=== PATIENT | male | born 1940 | race Caucasian/White ===

== ENCOUNTER 2020-01-12 09:54 | Outpatient (REF) | payer MEDICARE, OTHER, SELFPAY ==
[2020-01-12 11:07] LABS: MANUAL DIFF FLAG NO
[2020-01-12 11:23] LABS: Basophils Absolute Auto 0.1 X10*3/uL (0.0-0.2); Basophils Percent Auto 0.6 % (0-2); Eosinophils Absolute Auto 0.1 X10*3/uL (0.0-0.4); Eosinophils Percent Auto 1.3 % (0-4); Hematocrit 44.6 % (42-52); Hemoglobin 14.7 g/dl (14.0-18.0); Imm Gran Abs Auto 0.02 X10*3/uL (0.00-0.03); Imm Gran Pct Auto 0.3 % (0.0-0.4); Lymphocytes Absolute Auto 1.8 X10*3/uL (1.2-4.9); Lymphocytes Percent Auto 23.1 % (20-40); Mean Corpuscular Hemoglobin 30.2 pg (27.0-33.0); Mean Corpuscular Volume 91.6 fL (80-98); Mean Platelet Volume 10.6 fL (9.4-12.4); Monocytes Absolute Auto 0.5 X10*3/uL (0.1-1.2); Neutrophils Absolute Auto 5.2 X10*3/uL (2.0-8.3); Neutrophils Percent Auto 67.7 % (45-73); Platelet Count 214 X10*3/uL (160-400); Red Blood Count 4.87 X10*6/uL (4.60-5.80); Red Cell Distribution Width 12.5 % (11.0-16.0); White Blood Count 7.7 X10*3/uL (4.8-10.8)
[2020-01-12 11:34] LABS: B Type Natriuretic Peptide 38 pg/mL (<100)
[2020-01-12 11:37] LABS: Alanine Aminotransferase 24 U/L (0-40); Albumin Level 4.1 g/dL (3.5-5.0); Alkaline Phosphatase 63 U/L (39-117); Anion Gap 11 (12-20); Aspartate Amino Transferase 22 U/L (5-37); Bilirubin Total 0.4 mg/dL (0.0-1.0); Blood Urea Nitrogen 19 mg/dL (9-16); Calcium 8.8 mg/dL (8.4-10.2); Carbon Dioxide 29 mmol/L (22-29); Chloride 106 mmol/L (96-108); Cholesterol 132 mg/dL; Estimated Glomerular Filt Rate 41; Glucose Fasting 105 mg/dL (60-99); HDL Cholesterol 31 mg/dL; LDL Cholesterol Calculated 78 mg/dl; Sodium 142 mmol/L (135-145); Total Protein 6.7 g/dL (6.5-8.0); Triglycerides 118 mg/dL
[2020-01-12 11:38] LABS: Estimated Average Glucose 117 mg/dL; Hemoglobin A1c % 5.7 %
[2020-01-12 11:52] LABS: T4 Thyroxine 7.4 ug/dL (4.5-12.0); Thyroid Stimulating Hormone 2.54 mIU/mL (0.32-4.0)
[2020-01-12 11:53] LABS: Anion Gap 13 (12-20); Blood Urea Nitrogen 19 mg/dL (9-16); Calcium 9.2 mg/dL (8.4-10.2); Carbon Dioxide 26 mmol/L (22-29); Chloride 107 mmol/L (96-108); Estimated Glomerular Filt Rate 41; Sodium 142 mmol/L (135-145)
[2020-01-12 12:18] LABS: Folate > 20.0 ng/mL (> or = 4.0); Vitamin B12 617 pg/mL (200-900)
== END 2020-01-12 09:55 | disposition home or self-care (01) ==
LOC: HO.HMGCLDS 09:54
PROVIDERS: PCP Internal Medicine; Visit Provider Internal Medicine Hypertension Specialist
DX: I12.9 Hypertensive chronic kidney disease with stage 1 through stage 4 chronic kidney disease, or unspecified chronic kidney disease (principal); N18.30 Chronic kidney disease, stage 3 unspecified; I25.10 Atherosclerotic heart disease of native coronary artery without angina pectoris; E78.00 Pure hypercholesterolemia, unspecified; F41.9 Anxiety disorder, unspecified; N40.0 Benign prostatic hyperplasia without lower urinary tract symptoms; K21.9 Gastro-esophageal reflux disease without esophagitis; E66.9 Obesity, unspecified; G47.33 Obstructive sleep apnea (adult) (pediatric); G20 Parkinson's disease; R60.0 Localized edema
CPT/HCPCS: 36415; 80051; 80053; 80061; 82310; 82565; 82607; 82746; 83036; 83880; 84436; 84443; 84520; 85025

== ENCOUNTER → 2020-01-26 10:37 | Outpatient (BNVA) | payer MEDICARE, OTHER, SELFPAY | PROVIDERS: PCP Internal Medicine; Visit Provider Internal Medicine | DX: I25.119 Atherosclerotic heart disease of native coronary artery with unspecified angina pectoris (principal); I12.9 Hypertensive chronic kidney disease with stage 1 through stage 4 chronic kidney disease, or unspecified chronic kidney disease; N18.9 Chronic kidney disease, unspecified; E78.5 Hyperlipidemia, unspecified; G47.33 Obstructive sleep apnea (adult) (pediatric); Z79.82 Long term (current) use of aspirin; Z99.89 Dependence on other enabling machines and devices | CPT/HCPCS: 99212 ==

== ENCOUNTER → 2020-08-03 08:18 | Outpatient (BNVA) | payer MEDICARE, OTHER, SELFPAY | PROVIDERS: PCP Internal Medicine; Referring Provider Internal Medicine; Visit Provider Psychiatry & Neurology Neurology | DX: G47.33 Obstructive sleep apnea (adult) (pediatric) (principal); G47.52 REM sleep behavior disorder; Z99.89 Dependence on other enabling machines and devices | CPT/HCPCS: 99202 ==

== ENCOUNTER 2020-08-12 07:48 | Outpatient (REF) | payer MEDICARE, OTHER, SELFPAY ==
[2020-08-12 11:32] LABS: MANUAL DIFF FLAG NO
[2020-08-12 11:44] LABS: Basophils Percent Auto 0.3 % (0-2); Eosinophils Absolute Auto 0.3 X10*3/uL (0.0-0.4); Eosinophils Percent Auto 2.9 % (0-4); Imm Gran Abs Auto 0.02 X10*3/uL (0.00-0.03); Imm Gran Pct Auto 0.2 % (0.0-0.4); Lymphocytes Absolute Auto 2.2 X10*3/uL (1.2-4.9); Lymphocytes Percent Auto 25.4 % (20-40); Mean Corpuscular HGB Conc 32.6 g/dl (31.0-36.0); Mean Corpuscular Hemoglobin 30.2 pg (27.0-33.0); Mean Corpuscular Volume 92.7 fL (80-98); Mean Platelet Volume 10.8 fL (9.4-12.4); Monocytes Absolute Auto 0.7 X10*3/uL (0.1-1.2); Monocytes Percent Auto 8.3 % (2-11); Neutrophils Absolute Auto 5.5 X10*3/uL (2.0-8.3); Neutrophils Percent Auto 62.9 % (45-73); Platelet Count 215 X10*3/uL (160-400); Red Blood Count 4.64 X10*6/uL (4.60-5.80); Red Cell Distribution Width 13.4 % (11.0-16.0); White Blood Count 8.7 X10*3/uL (4.8-10.8)
[2020-08-12 11:56] LABS: Estimated Average Glucose 123 mg/dL; Hemoglobin A1c % 5.9 %
[2020-08-12 12:08] LABS: Alanine Aminotransferase 22 U/L (0-40); Albumin Level 3.9 g/dL (3.5-5.0); Alkaline Phosphatase 69 U/L (39-117); Anion Gap 12 (12-20); Aspartate Amino Transferase 17 U/L (5-37); Bilirubin Total 0.5 mg/dL (0.0-1.0); Blood Urea Nitrogen 24 mg/dL (9-16); Calcium 9.3 mg/dL (8.4-10.2); Carbon Dioxide 28 mmol/L (22-29); Chloride 106 mmol/L (96-108); Cholesterol 127 mg/dL; Estimated Glomerular Filt Rate 41; Glucose Random 113 mg/dL (60-115); HDL Cholesterol 35 mg/dL; LDL Cholesterol Calculated 72 mg/dl; Potassium 3.9 mmol/L (3.3-5.1); Sodium 142 mmol/L (135-145); Total Protein 6.3 g/dL (6.5-8.0); Triglycerides 102 mg/dL
[2020-08-12 12:18] LABS: Free T4 (Free Thyroxine) 0.93 ng/dL (0.71-1.85); Thyroid Stimulating Hormone 2.91 uIU/mL (0.32-4.0)
[2020-08-12 12:22] LABS: Folate 16.4 ng/mL (> or = 4.0); Vitamin B12 332 pg/mL (200-900)
== END 2020-08-12 07:49 | disposition home or self-care (01) ==
LOC: HO.HMGCLDS 07:48
PROVIDERS: PCP Internal Medicine; Visit Provider Internal Medicine
DX: I25.10 Atherosclerotic heart disease of native coronary artery without angina pectoris (principal); E78.00 Pure hypercholesterolemia, unspecified; I10 Essential (primary) hypertension
CPT/HCPCS: 36415; 80053; 80061; 82607; 82746; 83036; 84439; 84443; 85025

== ENCOUNTER → 2020-09-07 12:57 | Outpatient (BNVA) | payer MEDICARE, OTHER, SELFPAY | PROVIDERS: PCP Internal Medicine; Referring Provider Internal Medicine; Visit Provider Internal Medicine | DX: I25.10 Atherosclerotic heart disease of native coronary artery without angina pectoris (principal); I12.9 Hypertensive chronic kidney disease with stage 1 through stage 4 chronic kidney disease, or unspecified chronic kidney disease; N18.9 Chronic kidney disease, unspecified; E78.5 Hyperlipidemia, unspecified; G47.33 Obstructive sleep apnea (adult) (pediatric); Z99.89 Dependence on other enabling machines and devices | CPT/HCPCS: 93005; 99212 ==

== ENCOUNTER → 2020-09-09 14:52 | Outpatient (REF) | payer MEDICARE, OTHER, SELFPAY | LOC: HO.SL 14:52 | PROVIDERS: PCP Internal Medicine; Visit Provider Psychiatry & Neurology Neurology | DX: G47.33 Obstructive sleep apnea (adult) (pediatric) (principal); G47.52 REM sleep behavior disorder; I10 Essential (primary) hypertension; Z99.89 Dependence on other enabling machines and devices | CPT/HCPCS: 95806 ==

== ENCOUNTER → 2020-10-19 09:52 | Outpatient (BNVA) | payer MEDICARE, OTHER, SELFPAY | PROVIDERS: PCP Internal Medicine; Visit Provider Psychiatry & Neurology Neurology | DX: Z13.89 Encounter for screening for other disorder (principal) | CPT/HCPCS: Q3014 ==

== ENCOUNTER 2020-11-12 13:45 | Outpatient (REF) | payer MEDICARE, OTHER, SELFPAY ==
--- NOTE | ~2020-11-12 | XR_ITS ---
EXAMINATION: XR KNEE, RIGHT CLINICAL INFORMATION: Right knee pain. COMPARISON: Right knee radiographs dated 11/06/2017. TECHNIQUE: AP and lateral views of the right knee. FINDINGS: Mild medial compartment joint space narrowing. Small tricompartmental marginal osteophytes. No osseous erosion. No fracture or dislocation. No significant joint effusion. No abnormal soft tissue calcification. XR/XR knee RT 2V IMPRESSION: Mild tricompartmental osteoarthritis, unchanged.
--- NOTE | ~2020-11-12 | XR_ITS ---
EXAMINATION: XR SHOULDER, RIGHT CLINICAL INFORMATION: Right shoulder pain. COMPARISON: Right shoulder radiographs dated 10/25/2018 TECHNIQUE: AP external rotation, Grashey, scapular Y, and axillary views of the right shoulder. FINDINGS: No acute fracture or dislocation. Moderate acromioclavicular marginal osteophytes. No osseous erosion. No abnormal soft tissue calcification. XR/XR shoulder RT min 2V IMPRESSION: Moderate acromioclavicular osteoarthritis, unchanged.
--- NOTE | ~2020-11-12 | XR_ITS ---
EXAMINATION: XR LUMBOSACRAL SPINE CLINICAL INFORMATION: Radiculopathy. COMPARISON: Lumbar spine MRI dated 08/27/2009. TECHNIQUE: Three views of the lumbosacral spine. FINDINGS: The lumbar lordosis is maintained. No acute fracture or subluxation. No loss of vertebral body height. Multilevel loss of intervertebral disc height with anterior endplate osteophytes, is prominent at L4-L5. Multilevel bilateral facet arthropathy. No lytic or blastic osseous lesion. Right upper quadrant surgical clips. XR/XR lumbar spine 2-3V IMPRESSION: Multilevel degenerative disc disease and bilateral facet arthropathy, progressed when compared to the prior MRI.
== END 2020-11-12 13:46 | disposition home or self-care (01) ==
LOC: HO.XRAY 13:45
PROVIDERS: PCP Internal Medicine; Visit Provider Internal Medicine
DX: M25.511 Pain in right shoulder (principal); M25.561 Pain in right knee; M54.10 Radiculopathy, site unspecified
CPT/HCPCS: 72100; 73030; 73560

== ENCOUNTER 2020-11-23 07:54 | Outpatient (REF) | payer MEDICARE, OTHER, SELFPAY ==
--- NOTE | ~2020-11-23 | XR_ITS ---
EXAMINATION: XR KNEE AP STANDING, BILATERAL XR KNEE, RIGHT CLINICAL INFORMATION: Pain in unspecified knee. COMPARISON: XR right knee 11/12/2020. XR left knee 11/06/2017. TECHNIQUE: AP bilateral standing view of the knees was obtained. A sunrise view of the right knee was obtained. FINDINGS: Tiny marginal osteophytes are noted in all 3 compartments of the right knee. There is no significant joint space narrowing. Tiny marginal osteophytes are noted in the medial and lateral compartments of the left knee without significant joint space narrowing. XR/XR knee standing BI IMPRESSION: Minor tricompartmental osteoarthritis in both knees.
--- NOTE | ~2020-11-23 | XR_ITS ---
EXAMINATION: XR KNEE AP STANDING, BILATERAL XR KNEE, RIGHT CLINICAL INFORMATION: Pain in unspecified knee. COMPARISON: XR right knee 11/12/2020. XR left knee 11/06/2017. TECHNIQUE: AP bilateral standing view of the knees was obtained. A sunrise view of the right knee was obtained. FINDINGS: Tiny marginal osteophytes are noted in all 3 compartments of the right knee. There is no significant joint space narrowing. Tiny marginal osteophytes are noted in the medial and lateral compartments of the left knee without significant joint space narrowing. 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
== END 2020-11-23 07:55 | disposition home or self-care (01) ==
LOC: HO.HOSX 07:54
PROVIDERS: Visit Provider Physician Assistant
DX: M17.11 Unilateral primary osteoarthritis, right knee (principal)
CPT/HCPCS: 73560; 73565; 99202; J1040

== ENCOUNTER → 2020-12-03 10:13 | Outpatient (BNVA) | payer MEDICARE, OTHER, SELFPAY | PROVIDERS: PCP Internal Medicine; Visit Provider Physician Assistant | DX: M17.11 Unilateral primary osteoarthritis, right knee (principal) | CPT/HCPCS: 99212 ==

== ENCOUNTER → 2020-12-06 11:23 | Outpatient (BNVA) | payer MEDICARE, OTHER, SELFPAY | PROVIDERS: PCP Internal Medicine; Visit Provider Internal Medicine | DX: M70.51 Other bursitis of knee, right knee (principal); M54.16 Radiculopathy, lumbar region | CPT/HCPCS: 99202 ==

== ENCOUNTER 2020-12-16 10:35 | Outpatient (REF) | payer MEDICARE, OTHER, SELFPAY ==
--- NOTE | ~2020-12-16 | MR_ITS ---
EXAMINATION: MR LUMBAR SPINE WITHOUT CONTRAST CLINICAL INFORMATION: Lower back pain radiating to lateral right thigh and knee. Lumbar radiculopathy. COMPARISON: Lumbar spine radiographs dated 11/12/2020. Lumbar spine MRI dated 08/27/2009. TECHNIQUE: MRI of the lumbar spine was obtained using routine sequences without contrast. FINDINGS: VERTEBRAL BODIES AND PARASPINAL STRUCTURES: Normal vertebral body alignment. The lumbar lordosis is maintained. No acute fracture or subluxation. No loss of vertebral body height. Multilevel loss of intervertebral disc height with disc desiccation throughout the lumbar spine, slightly progressed when compared to the prior examination. Schmorl's nodes and Modic type II degenerative changes at L1-L2, progressed when compared to the prior examination. Large Schmorl's node and Modic type II degenerative endplate changes at L3-L4, new when compared to the prior examination. Schmorl's nodes and Modic type II degenerative endplate changes at L4-L5, progressed when compared to the prior examination. No marrow edema to suggest acute osseous injury. 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 Subcutaneous edema within the lower back. The left renal parenchyma is nearly entirely replaced by cysts, new when compared to the prior examination. CONUS MEDULLARIS AND CAUDA EQUINA: Normal, terminating at the level of L1. SPINAL LEVELS: T12-L1: No significant disc bulge. No central canal or neural foraminal stenosis. L1-L2: Shallow broad-based disc bulge, slightly more prominent when compared to the prior examination. Bilateral facet arthropathy and thickening of ligamentum flavum with mild bilateral neural foraminal stenosis, unchanged. L2-L3: Minimal disc bulge with bilateral facet arthropathy and thickening of ligamentum flavum causing mild bilateral neural foraminal stenosis, not significantly changed. L3-L4: Mild broad-based disc bulge with prominent facet arthropathy and thickening of ligamentum flavum causing mild central canal stenosis as well as moderate bilateral neural foraminal stenosis, progressed when compared to the prior examination. L4-L5: Broad-based disc bulge with severe bilateral facet arthropathy and thickening of ligamentum flavum as well as epidural fat hypertrophy causing moderate central canal and mild to moderate bilateral neural foraminal stenosis. Central canal stenosis has progressed when compared to the prior examination. L5-S1: Minimal disc bulge and bilateral facet arthropathy. Hypertrophy of the epidural fat causing moderate central canal stenosis, unchanged. Mild bilateral neural foraminal stenosis is unchanged. MR/MR lumbar spine wo con IMPRESSION: 1. Prominent multilevel degenerative disc disease with degenerative endplate changes and Schmorl's nodes, progressed when compared to the prior examination. 2. Mild broad-based disc bulge at L3-L4 with prominent bilateral facet arthropathy and thickening of the ligamentum flavum causing mild central canal stenosis as well as moderate bilateral neural foraminal stenosis, increased when compared to the prior examination. 3. Broad-based disc bulge with severe bilateral facet arthropathy at L4-L5 as well as thickening of ligamentum flavum and epidural fat hypertrophy causing moderate central canal stenosis which has progressed when compared to the prior examination. Mild to moderate bilateral neural foraminal stenosis appears unchanged. 4. Minimal disc bulge at L5-S1 with hypertrophy of the epidural fat and bilateral facet arthropathy causing moderate central canal stenosis as well as mild bilateral neural foraminal stenosis which is unchanged.
--- NOTE | ~2020-12-16 | MR_ITS ---
EXAMINATION: MR KNEE WITHOUT CONTRAST, RIGHT CLINICAL INFORMATION: Right knee pain. Injury in October 2020. Pain and swelling. Bursitis. COMPARISON: Multiple priors, most recent right knee radiographs dated 11/23/2020. TECHNIQUE: MRI of the knee without contrast was performed using routine sequences on a high-field scanner. FINDINGS: MENISCI: Medial Meniscus: Oblique inner margin radial tear of the posterior body/posterior horn junction. Blunting of the posterior horn and posterior root inner margin, consistent with fraying/tearing. Lateral Meniscus: Mild inner margin fraying of the meniscal body and posterior horn with a nondisplaced oblique inner margin tear of the posterior horn/root junction. LIGAMENTS: Cruciate: Intact Collateral: Mild edema adjacent to the medial collateral ligament, which may represent a grade 1 sprain. Intact fibular collateral ligament. EXTENSOR MECHANISM: Intact. ARTICULAR CARTILAGE/BONE: Patellofemoral Compartment: Full-thickness articular cartilage loss with underlying subchondral cystic change at the superior aspect of the patellar median ridge. Central trochlear articular cartilage signal heterogeneity and surface regularly. Tiny marginal osteophytes. Medial Compartment: Mild weightbearing articular cartilage signal heterogeneity. Tiny marginal osteophytes. Lateral Compartment: Weightbearing articular cartilage signal heterogeneity and surface irregularity. Areas of ygpj-[id number] loss at the lateral tibial plateau. Tiny marginal osteophytes. Posterior non-weightbearing lateral femoral condyle [id number]-[id number] articular cartilage loss. JOINT FLUID AND BURSAE: Trace joint effusion and trace Marshall's cyst. MR/MR knee RT wo con IMPRESSION: 1. Prominent oblique inner margin radial tear of the medial meniscus posterior body/posterior horn junction. Additional inner margin fraying/tearing of the posterior horn and root. 2. Oblique inner margin tear of the lateral meniscus posterior horn with inner margin fraying through the meniscal body and posterior horn. 3. Probable grade 1 sprain of the medial collateral ligament. 4. Mild tricompartmental osteoarthritis. Trace joint effusion and trace Marshall's cyst.
== END 2020-12-16 10:36 | disposition home or self-care (01) ==
LOC: HO.MRI 10:35
PROVIDERS: Visit Provider Internal Medicine
DX: M70.51 Other bursitis of knee, right knee (principal); M54.16 Radiculopathy, lumbar region
CPT/HCPCS: 72148; 73721

== ENCOUNTER → 2020-12-28 09:29 | Outpatient (BNVA) | payer MEDICARE, OTHER, SELFPAY | PROVIDERS: PCP Internal Medicine; Visit Provider Psychiatry & Neurology Neurology | DX: Z13.89 Encounter for screening for other disorder (principal) | CPT/HCPCS: Q3014 ==

== ENCOUNTER 2020-12-30 09:50 | Outpatient (REF) | payer MEDICARE, OTHER, SELFPAY ==
[2020-12-30 11:48] LABS: Alanine Aminotransferase 25 U/L (0-40); Albumin Level 3.8 g/dL (3.5-5.0); Alkaline Phosphatase 71 U/L (39-117); Anion Gap 11 (12-20); Aspartate Amino Transferase 19 U/L (5-37); Bilirubin Total 0.5 mg/dL (0.0-1.0); Blood Urea Nitrogen 21 mg/dL (9-16); Calcium 9.3 mg/dL (8.4-10.2); Carbon Dioxide 28 mmol/L (22-29); Chloride 108 mmol/L (96-108); Estimated Glomerular Filt Rate 38; Glucose Fasting 106 mg/dL (60-99); Potassium 4.1 mmol/L (3.3-5.1); Sodium 143 mmol/L (135-145); Total Protein 6.2 g/dL (6.5-8.0)
[2020-12-31 12:50] LABS: Calcium (PTHI) 9.5 mg/dL (8.6-10.3); PTHI 77 pg/mL (14-64)
== END 2020-12-30 09:51 | disposition home or self-care (01) ==
LOC: HO.HMGCLDS 09:50
PROVIDERS: PCP Internal Medicine; Visit Provider Internal Medicine Hypertension Specialist
DX: I12.9 Hypertensive chronic kidney disease with stage 1 through stage 4 chronic kidney disease, or unspecified chronic kidney disease (principal); N18.9 Chronic kidney disease, unspecified
CPT/HCPCS: 36415; 80053; 83970

== ENCOUNTER 2020-12-31 10:31 | Outpatient (REF) | payer MEDICARE, OTHER, SELFPAY ==
[2020-12-31 11:53] LABS: Protein/Creatinine Ratio, Ur 0.06 (<0.2); Total Protein Urine Random 10 mg/dL (<12)
== END 2020-12-31 10:32 | disposition home or self-care (01) ==
LOC: HO.HMGCLNP 10:31
PROVIDERS: Visit Provider Internal Medicine Hypertension Specialist
DX: M70.51 Other bursitis of knee, right knee (principal); M17.11 Unilateral primary osteoarthritis, right knee; M48.061 Spinal stenosis, lumbar region without neurogenic claudication; M54.51 Vertebrogenic low back pain; I12.9 Hypertensive chronic kidney disease with stage 1 through stage 4 chronic kidney disease, or unspecified chronic kidney disease; N18.9 Chronic kidney disease, unspecified
CPT/HCPCS: 84156; 99202

== ENCOUNTER 2021-01-13 13:00 | Outpatient (RCR) | payer MEDICARE, OTHER, SELFPAY ==
--- NOTE | 2021-01-06 12:45 | MHC.PT.EP ---
[facility] [place] [facility] [place] [facility] [place] Office [address] [phone] F: [phone] F: [phone] F: [phone] F: [phone] Physical Therapy Plan of Care Date of Evaluation: Date of Surgery: NA Diagnosis: RIGHT KNEE BURSITIS Assessment: KEV IS A PLEASANT 80 YO GENTLEMAN WHO PRESENTS WITH INCREASING KNEE PAIN OVER THE LAST SEVERAL MONTHS. UPON EXAM HE DEMONSTRATES DECREASED ROM AND STRENGTH, ALTERED POSTURE/SOFT TISSUE MOBILITY AND INCREASED PAIN. FUNCTIONAL LIMITATIONS INCLUDE DECREASED ABILITY TO PERFORM WALKING, STANDING, PERFORMING TRANSFERS, DECREASED ABILITY TO PERFORM HOMEMAKING AND SELF CARE TASKS, DECREASED ABILITY TO PARTICIPATE IN RECREATIONAL AND COMMUNITY ACTIVITIES. Frequency and Duration: The patient will be seen 2 X WEEK FOR 3 WEEKS Short Term Goals: INITIATE HEP AND PROMOTE SELF MANAGEMENT OF SYMPTOMS IN 2 VISITS Group Home Goals: INDEPENDENT HEP PRIOR TO LEAVING FOR [place] DECREASED PAIN LEVELS BY 2 POINTS ON VAS Treatment Plan: Modalities to reduce pain, spasms and effusion. Manual therapy to restore motion and function. Therapeutic exercise to improve strength and flexibility. Neuromuscular re-education for posture and balance. Therapeutic activities to return to functional activities of daily living. Electronically signed by: ESVIN TAYLOR PT, DPT Please sign and return to therapist. Thank you for your referral.
--- NOTE | 2021-03-31 12:00 | MHC.PT.DC ---
[facility] [place] Office [place] Office [place] Office [address] Quintero [address] [phone] F: [phone] F: [phone] F: [phone] F: [phone] Physical Therapy Discharge Report Diagnosis: RIGHT KNEE BURSITIS Date of Surgery: NA Date of Evaluation: 01/05/21 Date of Discharge: 01/30/21 Treatments to Date: 3 Cancellations to Date: 0 No Shows to Date: 0 Discharge Status: Independent with HEP Discharge Summary: UNFORTUNATELY, KEV'S SON AND HE IS HOLDING THERAPY AT THIS TIME. Electronically signed by: ESVIN TAYLOR PT, DPT Please sign and return to therapist. Thank you for your referral.
== END 2021-03-31 12:01 | disposition home or self-care (01) ==
LOC: HO.PT 13:00
PROVIDERS: PCP Internal Medicine; Visit Provider Internal Medicine
DX: M54.16 Radiculopathy, lumbar region (principal); M70.51 Other bursitis of knee, right knee
CPT/HCPCS: 97014; 97035; 97110; 97161

== ENCOUNTER 2021-01-19 06:16 | Outpatient (REF) | payer MEDICARE, OTHER, SELFPAY | END 2021-01-19 06:17 | disposition home or self-care (01) | LOC: HO.RADIR 06:16 | PROVIDERS: Visit Provider Internal Medicine | DX: M25.561 Pain in right knee (principal); I25.10 Atherosclerotic heart disease of native coronary artery without angina pectoris; E78.5 Hyperlipidemia, unspecified; I12.9 Hypertensive chronic kidney disease with stage 1 through stage 4 chronic kidney disease, or unspecified chronic kidney disease; N18.9 Chronic kidney disease, unspecified; G47.33 Obstructive sleep apnea (adult) (pediatric); Z99.89 Dependence on other enabling machines and devices | CPT/HCPCS: 64555; 99212; C1778 ==

== ENCOUNTER → 2021-01-24 08:00 | Outpatient (BNVA) | payer MEDICARE, OTHER, SELFPAY | PROVIDERS: PCP Internal Medicine; Visit Provider Internal Medicine | DX: Z09 Encounter for follow-up examination after completed treatment for conditions other than malignant neoplasm (principal); M25.511 Pain in right shoulder | CPT/HCPCS: 99212 ==

== ENCOUNTER 2021-08-09 08:35 | Outpatient (REF) | payer MEDICARE, OTHER, SELFPAY ==
[2021-08-09 11:28] LABS: MANUAL DIFF FLAG NO
[2021-08-09 11:35] LABS: Basophils Absolute Auto 0.1 X10*3/uL (0.0-0.2); Basophils Percent Auto 0.6 % (0-2); Eosinophils Absolute Auto 0.4 X10*3/uL (0.0-0.4); Eosinophils Percent Auto 4.6 % (0-4); Hemoglobin 15.3 g/dl (14.0-18.0); Imm Gran Abs Auto 0.03 X10*3/uL (0.00-0.03); Imm Gran Pct Auto 0.4 % (0.0-0.4); Lymphocytes Absolute Auto 2.2 X10*3/uL (1.2-4.9); Lymphocytes Percent Auto 28.2 % (20-40); Mean Corpuscular HGB Conc 33.3 g/dl (31.0-36.0); Mean Corpuscular Hemoglobin 29.9 pg (27.0-33.0); Mean Platelet Volume 10.9 fL (9.4-12.4); Monocytes Absolute Auto 1.1 X10*3/uL (0.1-1.2); Monocytes Percent Auto 14.2 % (2-11); Neutrophils Absolute Auto 4.1 x10*3/uL (2.0-8.3); Platelet Count 222 X10*3/uL (160-400); Red Blood Count 5.11 X10*6/uL (4.60-5.80); Red Cell Distribution Width 13.4 % (11.0-16.0); White Blood Count 7.9 X10*3/uL (4.8-10.8)
[2021-08-09 11:43] LABS: B Type Natriuretic Peptide 19 pg/mL (<100)
[2021-08-09 11:58] LABS: Alanine Aminotransferase 30 U/L (0-40); Albumin Level 3.8 g/dL (3.5-5.0); Alkaline Phosphatase 76 U/L (39-117); Anion Gap 16 (12-20); Aspartate Amino Transferase 35 U/L (5-37); Bilirubin Total 0.7 mg/dL (0.0-1.0); Blood Urea Nitrogen 39 mg/dL (9-16); Calcium 9.4 mg/dL (8.4-10.2); Carbon Dioxide 28 mmol/L (22-29); Chloride 103 mmol/L (96-108); Cholesterol 128 mg/dL; Estimated Glomerular Filt Rate 25; Glucose Random 108 mg/dL (60-115); HDL Cholesterol 33 mg/dL; LDL Cholesterol Calculated 73 mg/dl; Potassium 3.9 mmol/L (3.3-5.1); Sodium 143 mmol/L (135-145); Triglycerides 114 mg/dL
[2021-08-09 12:08] LABS: Thyroid Stimulating Hormone 3.37 uIU/mL (0.32-4.0)
[2021-08-09 12:22] LABS: Folate 19.6 ng/mL (> or = 4.0); Vitamin B12 486 pg/mL (200-900)
== END 2021-08-09 08:36 | disposition home or self-care (01) ==
LOC: HO.HMGCLDS 08:35
PROVIDERS: Visit Provider Internal Medicine
DX: E78.00 Pure hypercholesterolemia, unspecified (principal)
CPT/HCPCS: 36415; 80053; 80061; 82607; 82746; 83880; 84439; 84443; 85025

== ENCOUNTER → 2021-08-16 12:35 | Outpatient (BNVA) | payer MEDICARE, OTHER, SELFPAY | PROVIDERS: PCP Internal Medicine; Referring Provider Internal Medicine; Visit Provider Internal Medicine | DX: I25.10 Atherosclerotic heart disease of native coronary artery without angina pectoris (principal); I12.9 Hypertensive chronic kidney disease with stage 1 through stage 4 chronic kidney disease, or unspecified chronic kidney disease; N18.9 Chronic kidney disease, unspecified; E78.5 Hyperlipidemia, unspecified; G47.33 Obstructive sleep apnea (adult) (pediatric); Z79.899 Other long term (current) drug therapy; Z99.89 Dependence on other enabling machines and devices | CPT/HCPCS: 93005; 99212 ==

== ENCOUNTER 2021-08-17 08:10 | Outpatient (REF) | payer MEDICARE, OTHER, SELFPAY ==
[2021-08-17 11:40] LABS: Anion Gap 14 (12-20); Blood Urea Nitrogen 26 mg/dL (9-16); Calcium 9.2 mg/dL (8.4-10.2); Carbon Dioxide 29 mmol/L (22-29); Chloride 104 mmol/L (96-108); Estimated Glomerular Filt Rate 38; Glucose Random 112 mg/dL (60-115); Potassium 3.6 mmol/L (3.3-5.1); Sodium 143 mmol/L (135-145)
[2021-08-17 11:43] LABS: Appearance Urine CLEAR; Color Urine YELLOW; Glucose Urine UA NEG (NEG); Leukocyte Esterase Urine NEG (NEG); Nitrite Urine NEG (NEG); Specific Gravity - Urine <= 1.005 (1.005-1.025); Urine Blood NEG (NEG); Urine Ketones NEG (NEG); Urine Protein NEG (NEG-TRACE)
[2021-08-17 12:13] LABS: RBC Urine 0-2 /HPF (0); WBC Urine 0 /HPF (0-4)
[2021-08-17 12:22] LABS: Creatinine Urine 63.42 mg/dL; Total Protein Urine Random < 7 mg/dL (<12)
== END 2021-08-17 08:11 | disposition home or self-care (01) ==
LOC: HO.HMGCLDS 08:10
PROVIDERS: Visit Provider Internal Medicine Hypertension Specialist
DX: I12.9 Hypertensive chronic kidney disease with stage 1 through stage 4 chronic kidney disease, or unspecified chronic kidney disease (principal); N18.4 Chronic kidney disease, stage 4 (severe)
CPT/HCPCS: 36415; 80048; 81001; 84156

== ENCOUNTER → 2021-08-23 13:57 | Outpatient (BNVA) | payer MEDICARE, OTHER, SELFPAY | PROVIDERS: PCP Internal Medicine; Visit Provider Nurse Practitioner Family | DX: G47.33 Obstructive sleep apnea (adult) (pediatric) (principal); G47.52 REM sleep behavior disorder; Z99.89 Dependence on other enabling machines and devices | CPT/HCPCS: 99212 ==

== ENCOUNTER 2021-09-13 16:43 | Emergency (ER) | payer OTHER, SELFPAY ==
--- NOTE | 2021-09-13 17:04 | ED_ITS ---
HPI - Nausea/Vomiting/Diarrhea General Chief complaint: Nausea/Vomiting/Diarrhea Stated complaint: Nausea vomiting diarrhea Time Seen by Provider: 09/13/21 17:04 History of Present Illness HPI Narrative: 81 years old male with multiple medical problems coronary disease, high cholesterol, anxiety disorder, BPH, hypertension, CKD, KEVIN using CPAP at every nightHad exposure with COVID with who was positive yesterday patient tested yesterday was negative but since yesterday been feeling lousy weak tired nauseated vomiting diarrhea today tested at home and come positive for COVID alexandro franklin denies any cough shortness of breath or fever no significant abdominal pain feel tired and lethargic had about 4 times being vomitings and same number times had diarrhea unable to eat much Related Data Home Medications Medication Instructions Recorded Confirmed amlodipine 5 mg tablet 5 mg PO DAILY 01/19/20 09/12/21 aspirin 81 mg tablet,delayed 81 mg PO DAILY 01/19/20 09/12/21 release (Adult Aspirin Regimen) finasteride 5 mg tablet 5 mg PO DAILY 01/19/20 09/12/21 nitroglycerin 0.3 mg sublingual 0.3 mg sublingual Q5M PRN 01/19/20 09/12/21 tablet (Nitrostat) cetirizine 10 mg tablet (All Day 10 mg PO DAILY PRN 08/08/21 09/12/21 Allergy (cetirizine)) telmisartan 40 mg tablet 20 mg PO DAILY 08/08/21 09/12/21 Previous Rx's Medication Instructions Recorded lorazepam 0.5 mg tablet 0.5 mg PO DAILY PRN anxiety #30 04/07/20 tabs atorvastatin 80 mg tablet (Lipitor) 80 mg PO DAILY 90 days #90 tabs 02/04/21 esomeprazole magnesium 40 mg 40 mg PO DAILY #90 caps 03/23/21 capsule,delayed release ezetimibe 10 mg tablet 10 mg PO DAILY #90 tabs 06/28/21 chlordiazepoxide HCl 5 mg capsule 5 mg PO BID PRN agitation 90 days 08/08/21 #90 caps fluticasone propionate 50 1 spray intranasal DAILY #16 grams 08/08/21 mcg/actuation nasal spray,suspension (Flonase Allergy Relief) atenolol 50 mg tablet 75 mg PO DAILY 30 days #45 tabs 09/12/21 cyclobenzaprine 5 mg tablet 5 mg PO TID PRN muscle spasm #30 09/12/21 tabs diclofenac sodium 1 % topical gel 4 g topical QID #100 grams 09/12/21 (Voltaren Arthritis Pain) benzonatate 200 mg capsule 200 mg PO BID-TID PRN cough #20 09/13/21 caps nirmatrelvir 150 mg-ritonavir 100 See Rx Instructions PO PER PKG DIR 09/13/21 mg tablet (EUA) (Paxlovid) 5 days #10 tabs ondansetron 4 mg disintegrating 4 mg PO Q6-8H PRN nausea and 09/13/21 tablet vomiting #7 tabs Allergies Allergy/AdvReac Type Severity Reaction Status Date / Time No Known Allergies Allergy Verified 09/13/21 17:05 Review of Systems Review of Systems: Yes all other systems are reviewed and are negative [facility] Past Medical History Medical History Chronic kidney disease (CKD) stage G3b/A2, moderately decreased glomerular filtration rate (GFR) between 30-44 mL/min/1.73 square meter and albuminuria creatinine ratio between 30-299 mg/g Left renal atrophy Parkinson's disease Renal calculi Surgical History History of cholecystectomy History of inguinal hernia repair History of kidney surgery Hx of knee surgery Family History Family History Father Colon cancer CAD (coronary artery disease) Hypertension Mother Hypertension FH: uterine cancer Maternal Aunt FH: uterine cancer Social History Social History Alcohol intake: never Patient Tobacco Use Status: Former Tobacco user Quit Date: quit 1967 e-Cigarette/Vaping Use: Never Used Second Hand Smoke Exposure: No Advance Directives: No Advance Directives Information Provided: No service: No Current occupational status: retired Cognitive needs: No Hearing needs: No Vision needs: Yes Physical Exam Vital Signs: Vital Signs: Last Vital Signs Temp 98.3 F 09/13/21 18:17 Pulse 93 09/13/21 18:17 Resp 16 09/13/21 18:17 BP 188/103 H 09/13/21 18:17 Pulse Ox 96 09/13/21 18:17 O2 Del Method 09/13/21 18:17 BMI result Body Mass Index 35.9 Appearance: Alert. Oriented X3. No acute distress. Eyes: No pallor or icterus ENT: Pharynx normal. Oral Mucosa dry Neck: Normal inspection. Neck supple. CVS: Normal heart rate and rhythm. Pulses normal. Respiratory: No respiratory distress. Equal air entry bilateral, no wheezing/rales/rhonchi Abdomen: Soft and nontender. Bowel sounds are present, no mass palpable, no CVA tenderness Skin: Skin warm and dry. Normal skin color. Normal skin turgor. Extremities: No lower extremity edema. No calf tenderness Neuro: Oriented X 3. No motor deficit. No sensory deficit.No cerebellar signs , cranial nerves II-XII intact MDM - Nausea/Vomiting/Diarrhea MDM Narrative Medical decision making narrative: Patient was COVID positive nausea vomiting diarrhea feeling much better after supportive treatment discharge patient home on [facility] Lab Data Attestation: I reviewed the patient's lab results. Result diagrams: 09/13/21 17:57 09/13/21 17:57 Labs: Lab Results 09/13/21 09/13/21 09/13/21 Range/Units 17:41 17:57 17:57 WBC 10.1 (4.8-10.8) X10*3/uL RBC 4.91 (4.60-5.80) X10*6/uL Hgb 14.6 (14.0-18.0) g/dl Hct 43.2 (42.0-52.0) % MCV 88.0 (80.0-98.0) fL MCH 29.7 (27.0-33.0) pg MCHC 33.8 (31.0-36.0) g/dl RDW 14.1 (11.0-16.0) % Plt Count 209 (160-400) X10*3/uL MPV 9.7 (9.4-12.4) fL Immature Gran % (Auto) 0.5 H (0.0-0.4) % Neut % (Auto) 84.2 H (45-73) % Lymph % (Auto) 5.1 L (20-40) % [place] % (Auto) 9.9 (2-11) % Eos % (Auto) 0.1 (0-4) % Baso % (Auto) 0.2 (0-2) % Lymph # (Auto) 0.5 L (1.2-4.9) X10*3/uL [place] # (Auto) 1.0 (0.1-1.2) X10*3/uL Eos # (Auto) 0.0 (0.0-0.4) X10*3/uL Baso # (Auto) 0.0 (0.0-0.2) X10*3/uL Abs Immat Gran (auto) 0.05 H (0.00-0.03) X10*3/uL Absolute Neuts (auto) 8.5 H (2.0-8.3) x10*3/uL Absolute Nucleated RBC 0.000 (0.0-0.012) X10*3/uL Nucleated RBC % (auto) 0.0 (0.0-0.2) /100WBC Sodium 142 (135-145) mmol/L Potassium 3.3 (3.3-5.1) mmol/L Chloride 103 (96-108) mmol/L Carbon Dioxide 29 (22-29) mmol/L Anion Gap 13 (12-20) BUN 16 (9-16) mg/dL Creatinine 1.48 H (0.5-1.4) mg/dL Estim Creat Clear Calc 50.2 Estimated GFR 46 Random Glucose 111 (60-115) mg/dL Calcium 8.8 (8.4-10.2) mg/dL Total Bilirubin 0.5 (0.0-1.0) mg/dL AST 24 (5-37) U/L ALT 28 (0-40) U/L Alkaline Phosphatase 105 D (39-117) U/L Total Protein 7.0 (6.5-8.0) g/dL Albumin 4.2 (3.5-5.0) g/dL COVID-19 (LIANG) Positive A (Negative) COVID-19 Clin Com See Note Discharge Plan Discharge Clinical Impression: COVID-19 Patient Disposition: Home, Self-Care Instructions: COVID-19 (Coronavirus Disease 2019) (ED) Additional Instructions: Drink plenty of fluids Medicine for nausea as prescribed Social distancing as advised Prescriptions: New ondansetron 4 mg tablet,disintegrating 4 mg PO Q6-8H PRN (Reason: nausea and vomiting) Qty: 7 0RF No Action lorazepam 0.5 mg tablet 0.5 mg PO DAILY PRN (Reason: anxiety) Qty: 30 0RF atorvastatin [Lipitor] 80 mg tablet 80 mg PO DAILY 90 Days Qty: 90 3RF esomeprazole magnesium 40 mg capsule,delayed release(DR/EC) 40 mg PO DAILY Qty: 90 3RF ezetimibe 10 mg tablet 10 mg PO DAILY Qty: 90 3RF Paxlovid (EUA) 150-100 mg tablet See Rx Instructions PO PER PKG DIR 5 Days Qty: 10 0RF Rx Instructions: nirmatrelvir 150 mg with Ritonavir 100 mg orally per package directions; benzonatate 200 mg capsule 200 mg PO BID-TID PRN (Reason: cough) Qty: 20 0RF finasteride 5 mg tablet 5 mg PO DAILY nitroglycerin [Nitrostat] 0.3 mg tablet, sublingual 0.3 mg sublingual Q5M PRN Rx Instructions: do not exceed 3 doses per episode aspirin [Adult Aspirin Regimen] 81 mg tablet,delayed release (DR/EC) 81 mg PO DAILY amlodipine 5 mg tablet 5 mg PO DAILY telmisartan 40 mg tablet 20 mg PO DAILY fluticasone propionate [Flonase Allergy Relief] 50 mcg/actuation spray,suspension 1 spray intranasal DAILY Qty: 16 0RF Rx Instructions: administer into each nostril cetirizine [All Day Allergy (cetirizine)] 10 mg tablet 10 mg PO DAILY PRN chlordiazepoxide HCl 5 mg capsule 5 mg PO BID PRN (Reason: agitation) 90 Days Qty: 90 1RF diclofenac sodium [Voltaren Arthritis Pain] 1 % gel 4 g topical QID Qty: 100 0RF Rx Instructions: apply to single knee, ankle, foot; for foot includes sole/toes/top of foot cyclobenzaprine 5 mg tablet 5 mg PO TID PRN (Reason: muscle spasm) Qty: 30 0RF atenolol 50 mg tablet 75 mg PO DAILY 30 Days Qty: 45 3RF Interventions: ED Discharge Assessment Last Done: 09/13/21 21:35 Discharge Date/Time: 09/13/21 21:35
[2021-09-13 17:05] VITALS: BP 118/85; BP 162/98; PULSE 98; RESP 18; TEMP 37.1; O2SAT 100; O2SAT 96; BMI 35.9
[2021-09-13 17:55] LABS: COVID-19 Test Positive (Negative); IDNOW Serial# 16C4AD1C
[2021-09-13] MEDS: ondansetron HCL 4 MG/2 ML VIAL IVPUSH (17:57)
[2021-09-13] MEDS: 0.9 % Sodium Chloride 1,000 ML 999 ML IV (17:57)
[2021-09-13 18:02] LABS: MANUAL DIFF FLAG NO
[2021-09-13 18:03] LABS: Basophils Percent Auto 0.2 % (0-2); Eosinophils Percent Auto 0.1 % (0-4); Hematocrit 43.2 % (42.0-52.0); Hemoglobin 14.6 g/dl (14.0-18.0); Imm Gran Abs Auto 0.05 X10*3/uL (0.00-0.03); Imm Gran Pct Auto 0.5 % (0.0-0.4); Lymphocytes Absolute Auto 0.5 X10*3/uL (1.2-4.9); Lymphocytes Percent Auto 5.1 % (20-40); Mean Corpuscular HGB Conc 33.8 g/dl (31.0-36.0); Mean Corpuscular Hemoglobin 29.7 pg (27.0-33.0); Mean Platelet Volume 9.7 fL (9.4-12.4); Monocytes Percent Auto 9.9 % (2-11); Neutrophils Absolute Auto 8.5 x10*3/uL (2.0-8.3); Neutrophils Percent Auto 84.2 % (45-73); Platelet Count 209 X10*3/uL (160-400); Red Blood Count 4.91 X10*6/uL (4.60-5.80); Red Cell Distribution Width 14.1 % (11.0-16.0); White Blood Count 10.1 X10*3/uL (4.8-10.8)
[2021-09-13 18:17] VITALS: BP 188/103; PULSE 93; RESP 16; TEMP 36.8; O2SAT 96
[2021-09-13 18:25] LABS: Alanine Aminotransferase 28 U/L (0-40); Albumin Level 4.2 g/dL (3.5-5.0); Alkaline Phosphatase 105 U/L (39-117); Anion Gap 13 (12-20); Aspartate Amino Transferase 24 U/L (5-37); Bilirubin Total 0.5 mg/dL (0.0-1.0); Blood Urea Nitrogen 16 mg/dL (9-16); Calcium 8.8 mg/dL (8.4-10.2); Carbon Dioxide 29 mmol/L (22-29); Chloride 103 mmol/L (96-108); Creatinine Clr Calc Pharmacy 50.2; Estimated Glomerular Filt Rate 46; Glucose Random 111 mg/dL (60-115); Potassium 3.3 mmol/L (3.3-5.1); Sodium 142 mmol/L (135-145)
== END 2021-09-13 21:35 | disposition home or self-care (01) ==
PROVIDERS: Emergency Provider Internal Medicine
DX: U07.1 COVID-19 (principal); R11.2 Nausea with vomiting, unspecified; I25.10 Atherosclerotic heart disease of native coronary artery without angina pectoris; Z79.899 Other long term (current) drug therapy
CPT/HCPCS: 36415; 80053; 85025; 87635; 96361; 96374; 99283; 99284; J2405

== ENCOUNTER 2021-10-13 13:32 | Outpatient (REF) | payer MEDICARE, OTHER, SELFPAY ==
--- NOTE | ~2021-10-13 | MR_ITS ---
EXAMINATION: MRI BRAIN WITHOUT CONTRAST CLINICAL INFORMATION: 81-year-old undergoing evaluation for possible right hemispheric stroke. COMPARISON: None TECHNIQUE: Multiplanar multisequence MR imaging of the brain was done without IV contrast. FINDINGS: BRAIN VOLUME: Within normal limits within the limitations of qualitative assessment. STRUCTURAL: No malformations. BRAIN AND MENINGES: DWI sequence demonstrates a subcentimeter focus of restricted diffusion within the posterior limb of the right internal capsule in addition to a 1.5 cm curvilinear zone of probable restricted diffusion in the deep right frontal white matter anteriorly and medially which, based on their appearance on the ADC map, are most consistent with small foci of acute to subacute cerebral ischemia. The remainder of the study demonstrates no significant restricted diffusion. There are numerous patchy and a few confluent zones of FLAIR/T2 signal hyperintensity within the subcortical and deeper periventricular white matter of both cerebral hemispheres, some of which are slightly T1 hypointense, likely reflecting chronic ischemic microangiopathy. There is a small, 7 mm remote lacunar infarct in the posterior left thalamus. There are chronic ischemic changes in the retrolenticular white matter of both internal capsules, right more than left, with a small remote lacunar infarct in the right retrolenticular capsule. There is a probable acute to subacute lacunar infarct in the posterior limb of the right internal capsule. There is extensive etat crible at the level of the basal ganglia. Gradient refocused imaging demonstrates several small, rounded foci of susceptibility-weighted signal loss scattered throughout the left parietal, left temporal and right temporal lobes, raza, left cerebellar hemisphere, both thalami and deep left horowitz radiata. These are nonspecific and could reflect multiple small foci of remote microhemorrhage, dystrophic mineralization or multiple small cavernous venous malformations. No extra-axial fluid collections, significant space-occupying process or mass effect is identified. VENTRICLES AND SUBARACHNOID SPACES: The ventricular system and subarachnoid spaces are within normal limits without hydrocephalus. ORBITAL STRUCTURES: The visualized orbital structures are grossly unremarkable within the limitations of the study. VASCULAR: Signal voids are seen in the visualized major intracranial vessels. There is mild dolichoectasia of the basilar artery which moderately indents the right ventral raza. OSSEOUS STRUCTURES, SINUSES/MASTOIDS, EXTRACRANIAL SOFT TISSUES: Small retention cysts with [id number] mucosal thickening in the left maxillary sinus with minor mucosal thickening in the ethmoid complex and right maxillary sinus and a 2 cm probable retention cyst in the sphenoid sinus on the left. Osseous structures appear grossly intact. MR/MR head/brain wo con IMPRESSION: 1. Suspect focus of acute cerebral ischemia in the deep right frontal lobe white matter and an acute to subacute lacunar infarct in the posterior limb of the right internal capsule. These findings were communicated to Dr. Villanueva on 10/13/2021 at 2:29 PM. 2. Chronic ischemic microangiopathy in the white matter of both cerebral hemispheres with a remote lacunar infarct in the left thalamus and other remote lacunar infarcts in the right dorsal thalamus and retrolenticular portion of the right internal capsule. 3. Scattered foci of susceptibility-weighted signal loss throughout both cerebral hemispheres and within the raza and left cerebellar hemisphere which do not correspond to the areas of white matter signal abnormality. Differential diagnostic considerations include multiple foci of remote microhemorrhage, multiple developmental cavernous venous malformations and dystrophic mineralization. 4. Paranasal sinus findings as discussed above.
== END 2021-10-13 13:33 | disposition home or self-care (01) ==
LOC: HO.MRI 13:32
PROVIDERS: Visit Provider Psychiatry & Neurology Neurology
DX: I63.9 Cerebral infarction, unspecified (principal)
CPT/HCPCS: 70551

== ENCOUNTER → 2021-12-30 14:06 | Outpatient (BNV) | payer MEDICARE, OTHER, SELFPAY | PROVIDERS: PCP Internal Medicine; Referring Provider Nurse Practitioner Family; Visit Provider Internal Medicine | DX: I26.99 Other pulmonary embolism without acute cor pulmonale (principal) | CPT/HCPCS: 99204; 99213 ==

== ENCOUNTER 2022-01-10 11:00 | Outpatient (RCR) | payer MEDICARE, OTHER, SELFPAY ==
--- NOTE | 2021-11-30 16:11 | MHC.PT.EP ---
[facility] [place] Office [place] Office [place] Office [address] Paul Quintero [address] [phone] F: [phone] F: [phone] F: [phone] F: [phone] Physical Therapy Plan of Care Date of Evaluation: Date of Surgery: Diagnosis: stroke L hemiparesis proximal hip flexor weakness Assessment: 81 y/o LHD male referred to PT s/p CVA with L hemiparesis. He has a PMH significant for Parkinsons Disease (parkinsonism from agent orange), HTN, and CVA in August (occured while he had COVID). He is unsure what his residual sx are and says some sx are from his Parkinsons with L hemiparesis, difficulty with handwriting, balance with eyes closed/ in dark rooms, and difficulty getting out of a chair. He has had several falls this year and most of these related to COVID. Examination shows decreased B hip flexion ROM, decreased L LE strength, impaired balance especially with eyes closed, and impaired gait pattern. Recommend PT 2x/week for 6 weeks to address impairments, implement HEP, and optimize functional mobility. Frequency and Duration: The patient will be seen 2x/week for 6 weeks Short Term Goals: 3 weeks I with HEP Improve B hip flexion to 100* B to facilitate don/doffing pants Sports Journalist Goals: 6 weeks I with HEP and self management of sx Pt will be able to stand with eyes closed, feet together for 20 seconds without sway Pt will be able to ambulate with good foot clearance B x 50' and cane Treatment Plan: Modalities to reduce pain, spasms and effusion. Manual therapy to restore motion and function. Therapeutic exercise to improve strength and flexibility. Neuromuscular re-education for posture and balance. Therapeutic activities to return to functional activities of daily living. Electronically signed by: Yue Krueger PT Please sign and return to therapist. Thank you for your referral.
--- NOTE | 2022-01-10 13:12 | MHC.PT.DC ---
[facility] [place] Office [place] Office [place] Office [address] Paul Quintero 140 [facility] [phone] F: [phone] F: [phone] F: [phone] F: [phone] Physical Therapy Discharge Report Diagnosis: stroke L hemiparesis proximal hip flexor weakness Date of Surgery: Date of Evaluation: 11/30/21 Date of Discharge: 01/10/22 Treatments to Date: 7 Cancellations to Date: 0 No Shows to Date: 0 Discharge Status: Improved Function Independent with HEP Discharge Summary: Overall he demonstrates improved stepping over obstacles, however when he gets fatigued he has decreased L foot clearance. We discussed making sure he pays close attention to foot clearance when he is tired for improved safety. Reviewed HEP and no further questions. He is d/c and will be leaving for [place] in 2 weeks. Electronically signed by: Yue Krueger PT Please sign and return to therapist. Thank you for your referral.
== END 2022-01-10 13:13 | disposition home or self-care (01) ==
LOC: HO.PT 11:00
PROVIDERS: PCP Internal Medicine; Visit Provider Psychiatry & Neurology Neurology
DX: I63.9 Cerebral infarction, unspecified (principal)
CPT/HCPCS: 97110; 97112; 97162

== ENCOUNTER → 2022-01-23 12:50 | Outpatient (BNVA) | payer MEDICARE, OTHER, SELFPAY | PROVIDERS: PCP Internal Medicine; Referring Provider Internal Medicine; Visit Provider Internal Medicine | DX: I25.10 Atherosclerotic heart disease of native coronary artery without angina pectoris (principal); I10 Essential (primary) hypertension; E78.5 Hyperlipidemia, unspecified; N18.9 Chronic kidney disease, unspecified; G47.33 Obstructive sleep apnea (adult) (pediatric); Z99.89 Dependence on other enabling machines and devices | CPT/HCPCS: 99212 ==

== ENCOUNTER 2022-01-24 11:21 | Outpatient (REF) | payer MEDICARE, OTHER, SELFPAY ==
--- NOTE | ~2022-01-24 | US_ITS ---
EXAMINATION: US RETROPERITONEAL LIMITED (RENAL ONLY) CLINICAL INFORMATION: Chronic kidney disease, unspecified. COMPARISON: Ultrasound retroperitoneal complete (renal) 04/26/2011. TECHNIQUE: Real-time imaging of the kidneys. FINDINGS: RIGHT KIDNEY: 11.6 x 4.1 x 6.5 cm (SAG x AP x TRV). The kidney is normal in size, contour with increased echogenicity. Renal cortical thickness is normal. No renal calculi or hydronephrosis. There is anechoic cyst midpole measuring 0.73 x 0.62 x 0.72 cm. LEFT KIDNEY: 9.0 x 5.1 x 5.6 cm (SAG x AP x TRV). The kidney is normal in size, contour, and echogenicity. Renal cortical thickness is normal. No renal calculi or focal parenchymal lesions. There is mild hydronephrosis. As per patient there is a nonfunctioning left kidney for 10 years. US/US renal BI IMPRESSION: Anechoic cyst midpole right kidney.
== END 2022-01-24 11:22 | disposition home or self-care (01) ==
LOC: HO.HMGCX 11:21
PROVIDERS: PCP Internal Medicine; Visit Provider Internal Medicine
DX: Z13.89 Encounter for screening for other disorder (principal)
CPT/HCPCS: 76775

== ENCOUNTER → 2022-01-24 12:53 | Outpatient (REF) | payer MEDICARE, OTHER, SELFPAY ==
--- NOTE | 2022-01-24 12:57 | CA_ITS ---
Transthoracic Echocardiogram Patient (Last, First, Middle): Prince Mccain A Gender: Male Date of : 1940 Age: 81 Procedure Date: 01/24/2022 Procedure Type: Transthoracic Echocardiogram Location: OP Height: 177.8 cm Weight: 113.4 kg BSA: 2.29 m2 Heart Rate: bpm BP: 130 / 80 mmHg Stock Preparation Supervisor: SUMIT Referring MD: Genevieve Cooper MD Symptoms: I26.99 - Other pulmonary embolism without acute cor pulmonale Study Quality: Fair ECG Rhythm: Sinus Conclusions: - The left ventricular systolic function is normal. The calculated ejection fraction is 61% by biplane method. - There is moderately increased left ventricular wall thickness. - Moderately increased right ventricular cavity size. - There is mild calcification of the aortic valve. - There is mild mitral annular calcification. - Borderline pulmonary artery systolic pressure. Findings Left Ventricle Normal left ventricular cavity size. There is moderately increased left ventricular wall thickness. The left ventricular systolic function is normal. The calculated ejection fraction is 61% by biplane method. There is no evidence of regional wall motion abnormalities. Evidence suggests grade I (mild) diastolic dysfunction. Right Ventricle Moderately increased right ventricular cavity size. There is normal right ventricular systolic function. Atria Both atria are normal in size. Aortic Valve There is a normal trileaflet aortic valve. There is mild calcification of the aortic valve. There is no aortic valve stenosis. There is trace (trivial) aortic valve regurgitation. Mitral Valve The mitral valve appears normal. There is mild mitral annular calcification. There is trace mitral valve regurgitation. There is no mitral valve stenosis. Pulmonic Valve There is mild pulmonic valve regurgitation. Tricuspid Valve Normal tricuspid valve structure. There is trace tricuspid valve regurgitation. Borderline pulmonary artery systolic pressure. Great Vessels The asc aorta is normal in size. Venous The inferior vena cava is normal in size and collapses greater than 50% with inspiration. Pericardium/Pleural There is a trivial pericardial effusion. Prior Study Comparison Changes noted compared to prior study dated: 12/10/2019. Right ventricular size increase. Measurements 2D Linear Measurements IVSd: 1.32 0.6-0.9/0.6-1.0 cm LVIDd: 4.21 3.9-5.3/4.2-5.9 cm LVIDd Index: 1.84 2.4-3.2/2.2-3.1 cm/m2 LVIDs: 2.58 2.0-3.6 cm LVPWd: 1.33 0.7-1.1 cm LA Diam: 3.90 2.7-3.8/3.0-4.0 cm LAIDs Index: 1.70 1.5-2.3 cm/m2 LV Mass: 258.14 67-162/88-224 g LV Mass Index: 112.72 43-95/49-115 g/m2 LVOT Diam: 2.20 3.0+(-)1.3 cm 2D Systolic Function EF 4C: 61.60 >55% EF 2C: 62.30 >55% EF BiP: 61.00 >55% Mitral Valve MV Pk E: 0.64 MV PK A: 1.02 MV Decel Time: 331.00 E/A: 0.60 E'Lateral: 6.20 E'Medial: 5.11 E/E' Med: 12.50 E/E' Lat: 10.30 PHT: 97.00 MVA PHT: 2.27 Decel O'Brien: 1.93 Aortic Valve AoV Pk Fredy: 1.13 AoV Mn Fredy: 0.77 AoV VTI: 0.30 AoV Pk Grad: 5.00 Aov Mn Grad: 3.00 SEEMA Cont.VTI: 3.48 LVOT LVOT Pk Fredy: 1.07 LVOT Mn Fredy: 0.72 LVOT VTI: 0.27 LVOT Pk Grad: 5.00 LVOT Mn Grad: 2.00 LVOT Diam: 2.20 LVOT Area: 3.80 Diastolic Function MV Pk E: 0.64 MV Pk A: 1.02 E/A: 0.60 E'Medial: 5.11 E/E' Med: 12.50 E' Laterial: 6.20 E/E' Lat: 10.30 Right Ventricle TAPSE (mm): 24.80 TVS' Fredy: 16.20 Tricuspid Valve TR Pk Fredy: 2.82 TR Pk Grad: 32.00 RA Press: 3.00 RVSP: 35.00 Great Vessels Aorta Sinus of Valsalva: 3.47 2.0-3.[address] [place]: 2.77 1.7-3.4 cm Ao Asc: 3.70 2.1-3.4 cm Updated in Other Vendor System with Status of Final Otoniel Ferguson MD electronically signed on 01/25/2022 12:45:14 PM with status of Final
== END ==
LOC: HO.CARD 12:53
PROVIDERS: PCP Internal Medicine; Visit Provider Internal Medicine
DX: I26.99 Other pulmonary embolism without acute cor pulmonale (principal)
CPT/HCPCS: 76775; 93306

== ENCOUNTER → 2022-08-08 10:23 | Outpatient (BNVA) | payer MEDICARE, OTHER, SELFPAY | PROVIDERS: PCP Internal Medicine; Visit Provider Internal Medicine | DX: I25.10 Atherosclerotic heart disease of native coronary artery without angina pectoris (principal); I12.9 Hypertensive chronic kidney disease with stage 1 through stage 4 chronic kidney disease, or unspecified chronic kidney disease; N18.9 Chronic kidney disease, unspecified; E78.5 Hyperlipidemia, unspecified; G47.33 Obstructive sleep apnea (adult) (pediatric); Z99.89 Dependence on other enabling machines and devices | CPT/HCPCS: 93005; 99212 ==

== ENCOUNTER → 2022-08-22 12:52 | Outpatient (BNVA) | payer MEDICARE, OTHER, SELFPAY | PROVIDERS: PCP Internal Medicine; Visit Provider Nurse Practitioner Family | DX: G47.33 Obstructive sleep apnea (adult) (pediatric) (principal); G47.52 REM sleep behavior disorder; Z99.89 Dependence on other enabling machines and devices | CPT/HCPCS: 99212 ==

== ENCOUNTER 2022-10-23 16:33 | Outpatient (AMB) | payer MEDICARE, OTHER, SELFPAY ==
[2022-10-23 16:35] VITALS: BP 140/90; PULSE 64; O2SAT 90; BMI 35.3
--- NOTE | 2022-10-23 16:35 | MHC.PC.OV ---
Vital Signs 10/23/22 16:35 Height 5 ft 10 in Weight 246 lb BMI 35.3 BP 140/90 H Blood Pressure Location Lt brachial Position Sitting Pulse 64 Pulse Source Pulse Oximeter Temp Source Skin Pulse Oximetry (%) 90 L Oxygen Delivery Method Room Air Intake Visit Reasons: 6 month f/u Intake Note: [employer] Required: No Allergies tree and shrub pollen Allergy (Verified 10/23/22 16:35) Sneezing Medication List - Last Reconciled 10/23/22 by Genevieve Cooper MD amlodipine 5 mg PO BID apixaban (Eliquis) 5 mg PO BID 90 days aspirin (Adult Aspirin Regimen) 81 mg PO DAILY atenolol 50 mg PO DAILY 90 days atorvastatin (Lipitor) 80 mg PO DAILY 90 days cetirizine (All Day Allergy (cetirizine)) 10 mg PO DAILY PRN 90 days esomeprazole magnesium 40 mg PO DAILY ezetimibe 10 mg PO DAILY finasteride 5 mg PO DAILY fluticasone propionate 50 mcg/actuation (Flonase Allergy Relief) 1 spray intranasal DAILY lorazepam 0.5 mg PO DAILY PRN nitroglycerin 0.3 mg sublingual Q5M PRN tamsulosin 0.4 mg PO BEDTIME telmisartan 40 mg PO DAILY 90 days Tobacco use date assessed: 10/23/22 Fall risk assessment: 2 + Falls in past year (2 in the last couple of weeks ) Last assessed Fall Risk: 10/23/22 Dental Screening Dental Screen Date: 10/23/22 HPI 6 month f/u HPI Details 82-year-old obese male with a history of pulmonary embolism, hypercholesterolemia BPH GERD atherosclerotic cardiovascular disease hypertension chronic kidney disease generalized anxiety disorder coming in for follow-up. Last seen in December 2021. Patient has been following up with Nephrology had knee surgery in March. Diagnosis hypertensive chronic kidney disease chronic kidney disease stage 3 solitary functioning right kidney history of chronic left-sided hydronephrosis patient also follows up with urology for the BPH and the is on finasteride 5 mg once a day and tamsulosin 0.4 mg once a day patient follows up with Hematology-Oncology also for the pulmonary embolism patient had cardiac catheterization in [place] that was normal continuing with Eliquis presently. As for the obstructive sleep apnea follows up with Neurology and continuing with the APAP 5-20 cm water cardiac baca LAD stenting 2017. Echocardiogram done January 2022he left ventricular systolic function is normal. The calculated ejection fraction is 61% by biplane method. - There is moderately increased left ventricular wall thickness. - Moderately increased right ventricular cavity size. - There is mild calcification of the aortic valve. - There is mild mitral annular calcification. - Borderline pulmonary artery systolic pressure. Patient has been off chlordiazepoxide for 3 months and concern about this but he is doing good= wi [facility] Medical History (Updated 10/23/22 @ 17:27 by Genevieve Cooper MD) Angina pectoris Anxiety Atherosclerotic cardiovascular disease BPH (benign prostatic hyperplasia) Chronic kidney disease (CKD) stage G3b/A2, moderately decreased glomerular filtration rate (GFR) between 30-44 mL/min/1.73 square meter and albuminuria creatinine ratio between 30-299 mg/g Chronic kidney disease, unspecified Coronary artery disease Essential hypertension GERD (gastroesophageal reflux disease) Hypercholesterolemia Left renal atrophy Obesity (BMI 30-39.9) Obstructive sleep apnea on CPAP Other and unspecified hyperlipidemia Parkinson's disease Pulmonary embolism Renal calculi Spinal stenosis of lumbar region Vertebrogenic low back pain Surgical History History of cholecystectomy History of inguinal hernia repair History of kidney surgery Hx of knee surgery Family History Father Colon cancer CAD (coronary artery disease) Hypertension Mother Hypertension FH: uterine cancer Maternal Aunt FH: uterine cancer Social History Household Members: Spouse and Significant Other Housing: House Alcohol intake: never Patient Tobacco Use Status: Former Tobacco user Quit Date: 1966 e-Cigarette/Vaping Use: Never Used Second Hand Smoke Exposure: No service: No Current occupational status: retired Cognitive needs: Yes Hearing needs: Yes Vision needs: Yes Questionnaire PHQ-9 Over the last 2 weeks, how often have you been bothered by any of the following problems? 1. Little interest or pleasure in doing things: not at all 2. Feeling down, depressed, or hopeless: not at all 3. Trouble falling or staying asleep, or sleeping too much: not at all 4. Feeling tired or having little energy: not at all 5. Poor appetite or overeating: not at all 6. Feeling bad about yourself - or that you are a failure or have let yourself or your family down: not at all 7. Trouble concentrating on things, such as reading the newspaper or watching television: not at all 8. Moving or speaking so slowly that other people could have noticed. Or the opposite - being so fidgety or restless that you have been moving around a lot more than usual: not at all 9. Thoughts that you would be better off or of hurting yourself in some way: not at all Total score: 0 Depression Screening Interpretation: Negative Source: Developed by Drs. Prince Jean Baptiste, Idalia Headley, Everardo Hancock and colleagues, with an educational blaine from [employer]. Thrive Questionnaire Date Thrive assessed: 10/23/22 I am a: Patient What is your living situation today?: I have a steady place to live Within the past 12 months, did the food you bought not last and you didn't have the money to get more?: Never true Within the past 12 months, did you worry whether your food would run out before you got money to buy more?: Never true Do you have trouble paying for medicines?: No Do you have trouble getting transportation to medical appointments?: No Do you have trouble paying your heating and electricity bill?: No Do you have trouble taking care of your child, family member or friend?: No Do you have trouble with day-to-day activities such as bathing, preparing meals, shopping, managing finances, etc.?: No Are you currently unemployed and looking for a job?: No Are you interested in more education?: No AUDIT C Alcohol Use Questionnaire (AUDIT-C) 1. How often do you have a drink containing alcohol?: Never 2. How many drinks containing alcohol do you have on a typical day when you are drinking?: 1 or 2 (0) 3. How often do you have six or more drinks on one occasion?: Never Total Score: 0 ROSEANNA-7 AMB Questionnaire ROSEANNA-7 Date ROSEANNA - 7 assessed: 10/23/22 Feeling nervous, anxious, or on edge: 0 = Not at all Not being able to stop or control worryin = Not at all Worrying too much about different things: 0 = Not at all Trouble relaxin = Not at all Being so restless that it is hard to sit still: 0 = Not at all Becoming easily annoyed or irritable: 0 = Not at all Feeling afraid as if something awful might happen: 0 = Not at all Total ROSEANNA-7 score (0-4 normal; 5-9 mild; 10-14 moderate; 15-21 severe): 0 Source: Developed by Drs. Prince Jean Baptiste, Idalia Headley, Everardo Hancock and colleagues, with an educational blaine from [employer]. Physical exam (Primary Care) Vital Signs: Last Vital Signs Pulse 64 10/23/22 16:35 BP 140/90 H 10/23/22 16:35 Pulse Ox 90 L 10/23/22 16:35 Oxygen Delivery Method Room Air 10/23/22 16:35 BMI result Body Mass Index 35.3 Tobacco/Smoking Status: Tobacco use Status Tobacco use date assessed 10/23/22 10/23/22 16:36 Patient Tobacco Use Status Former Tobacco user 10/23/22 16:36 e-Cigarette/Vaping Use Never Used 10/23/22 16:36 PHQ-9: PHQ-9 Score PHQ-9: Total score 0 10/23/22 16:45 Depression Screening Interpretation: Negative Thrive Assessment: Date of Thrive Assessment Date Thrive assessed 10/23/22 10/23/22 16:36 Const General: alert; No acute distress Eyes Conjunctivae: conjunctivae normal Resp Auscultation: clear to auscultation bilaterally Cardio Rate: regular rate Rhythm: regular rhythm GI Inspection: Yes normal to inspection Extrem General: Yes normal to inspection and No edema Assessment and Plan Assessment & Plan (1) CVA (cerebral vascular accident): Code(s): I63.9 - Cerebral infarction, unspecified Plan: Control the cholesterol, weight, blood pressure (2) Pulmonary embolism: Code(s): I26.99 - Other pulmonary embolism without acute cor pulmonale Plan: continue with anticoagulation (3) Generalized anxiety disorder: Code(s): F41.1 - Generalized anxiety disorder Plan: continue with present medication (4) Obstructive sleep apnea on CPAP: Code(s): G47.33 - Obstructive sleep apnea (adult) (pediatric); Z99.89 - Dependence on other enabling machines and devices Plan: continue with CPAP more than 4 hours a night and benefits from this (5) Chronic kidney disease, unspecified: Code(s): N18.9 - Chronic kidney disease, unspecified Qualifiers: Chronic kidney disease stage: unspecified stage Qualified Code(s): N18.9 - Chronic kidney disease, unspecified Plan: keep well hydrated, will continue to monitor (6) Essential hypertension: Code(s): I10 - Essential (primary) hypertension Plan: Continue with blood pressure medication. Decrease salt intake and exercise (7) Obesity (BMI 30-39.9): Code(s): E66.9 - Obesity, unspecified Plan: diet and exercise (8) Atherosclerotic cardiovascular disease: Code(s): I25.10 - Atherosclerotic heart disease of [place] coronary artery without angina pectoris Plan: Control the cholesterol, weight, blood pressure (9) GERD (gastroesophageal reflux disease): Code(s): K21.9 - Gastro-esophageal reflux disease without esophagitis Qualifiers: Esophagitis presence: with esophagitis Esophagitis bleeding: without hemorrhage Qualified Code(s): K21.00 - Gastro-esophageal reflux disease with esophagitis, without bleeding Plan: Avoid the foods that causes that usually spicy foods, tomato products, juices, coffee, soda and foods that your sensitive to. After eating do not lie down, allow 3-4 hours before in lie down. And keep the head of bed above 30 degrees to avoid the acid from going up. (10) BPH (benign prostatic hyperplasia): Comment: Dr. Torres Code(s): N40.0 - Benign prostatic hyperplasia without lower urinary tract symptoms Qualifiers: Lower urinary tract symptom presence: symptoms present Lower urinary tract symptom detail: urinary frequency Qualified Code(s): N40.1 - Benign prostatic hyperplasia with lower urinary tract symptoms; R35.0 - Frequency of micturition Plan: Patient continues to follow-up with urology and will continue surveillance (11) Hypercholesterolemia: Code(s): E78.00 - Pure hypercholesterolemia, unspecified Plan: Avoid fried foods, chicken skin, eggs, butter margarine, pastries and meat. Be it pork or beef they have a lot of cholesterol LDL goal of less t (12) Constipation: Code(s): K59.00 - Constipation, unspecified (13) Frequency of micturition: Code(s): R35.0 - Frequency of micturition Orders: Orders US bladder Today R35.0 - Frequency of micturition Medications: Discontinued chlordiazepoxide HCl Discontinued Reason: Doctor's Order 5 mg PO BID 90 days PRN 90 caps 2RF agitation F41.1 - Generalized anxiety disorder Coding Level of Care Code Est Pt Level 4 (58426) Diagnoses CVA (cerebral vascular accident) I63.9 Pulmonary embolism I26.99 Generalized anxiety disorder F41.1 Obstructive sleep apnea on CPAP G47.33; Z99.89 Chronic kidney disease, unspecified N18.9 Chronic kidney disease stage: unspecified stage Essential hypertension I10 Obesity (BMI 30-39.9) E66.9 Atherosclerotic cardiovascular disease I25.10 GERD (gastroesophageal reflux disease) K21.00 Esophagitis presence: with esophagitis Esophagitis bleeding: without hemorrhage BPH (benign prostatic hyperplasia) N40.1; R35.0 Lower urinary tract symptom presence: symptoms present Lower urinary tract symptom detail: urinary frequency Hypercholesterolemia E78.00 Constipation K59.00 Frequency of micturition R35.0
== END 2022-10-23 17:36 | disposition home or self-care (01) ==
PROVIDERS: Visit Provider Internal Medicine
DX: I12.9 Hypertensive chronic kidney disease with stage 1 through stage 4 chronic kidney disease, or unspecified chronic kidney disease (principal); N18.9 Chronic kidney disease, unspecified; I26.99 Other pulmonary embolism without acute cor pulmonale; Z86.73 Personal history of transient ischemic attack (TIA), and cerebral infarction without residual deficits; F41.1 Generalized anxiety disorder; G47.33 Obstructive sleep apnea (adult) (pediatric); Z99.89 Dependence on other enabling machines and devices; E66.9 Obesity, unspecified; I25.10 Atherosclerotic heart disease of native coronary artery without angina pectoris; K21.00 Gastro-esophageal reflux disease with esophagitis, without bleeding; N40.1 Benign prostatic hyperplasia with lower urinary tract symptoms; R35.0 Frequency of micturition
CPT/HCPCS: 99214

== ENCOUNTER 2022-11-22 12:49 | Outpatient (REF) | payer MEDICARE, OTHER, SELFPAY | END 2022-11-22 12:50 | disposition home or self-care (01) | LOC: HO.US 12:49 | PROVIDERS: PCP Internal Medicine; Visit Provider Internal Medicine | DX: Z13.89 Encounter for screening for other disorder (principal) ==

== ENCOUNTER 2022-11-28 12:45 | Outpatient (REF) | payer MEDICARE, OTHER, SELFPAY ==
--- NOTE | ~2022-11-28 | US_ITS ---
EXAMINATION: US PELVIS LIMITED (BLADDER) CLINICAL INFORMATION: Frequency of micturition. COMPARISON: Bilateral renal ultrasound dated 01/24/2022 and 04/26/2011. X-ray abdomen dated 04/05/2010. TECHNIQUE: Real-time imaging of the bladder. FINDINGS: BLADDER: Well distended and normal. Right ureteral jet is demonstrated; left ureteral jet is not demonstrated. Prevoid bladder volume is 173 mL. Postvoid bladder volume is 29 mL. Prostate gland volume is 27.3 mL. US/US bladder IMPRESSION: Unremarkable sonographic evaluation of the urinary bladder.
== END 2022-11-28 12:46 | disposition home or self-care (01) ==
LOC: HO.HMGCX 12:45
PROVIDERS: PCP Internal Medicine; Visit Provider Internal Medicine
DX: R35.0 Frequency of micturition (principal)
CPT/HCPCS: 76857

== ENCOUNTER 2023-01-19 10:00 | Outpatient (RCR) | payer MEDICARE, OTHER, SELFPAY ==
[2021-12-30 14:14] VITALS: BP 125/69; PULSE 59; RESP 16; TEMP 36.4; BMI 37.2
--- NOTE | 2021-12-30 14:33 | PM.HEMONCCN ---
Subjective - Subjective Chief complaint: Pulmonary embolism Patient: new to practice Consult date: 12/30/21 Primary Care Provider: Genevieve Cooper MD Medical Summary: Diagnosis: Right segmental pulmonary embolism December 2021 HPI - Consult Narrative Reason for consult: Pulmonary embolism Narrative: Prince Mccain is a 81 year old male referred for management of recently diagnosed pulmonary embolism. He presented with chest pain a week ago to [facility]. He had cardiac workup which was negative, he then had a CT angiogram which revealed a segmental pulmonary embolism in the right lung. Lower extremity Doppler was negative for DVT. He was started on Eliquis. He is tolerating that quite well and reports resolution of chest pain. There is no prior history of thromboembolism or family history. He has had strokes in the past. He has been on baby aspirin for many years. He has had a colonoscopy 10 years ago. He has no other complaints such as loss of appetite, fatigue or weight loss. No change in bowel habits. Review of Systems - Constitutional Reports as per HPI, Reports no additional constitutional complaints - Cardiovascular Reports no additional cardiovascular complaints - Respiratory Reports no additional respiratory complaints [facility] Medical History: Medical History (Last Reviewed 12/30/21 @ 14:19 by Reshma Adair) Angina pectoris Anxiety Atherosclerotic cardiovascular disease BPH (benign prostatic hyperplasia) Chronic kidney disease (CKD) stage G3b/A2, moderately decreased glomerular filtration rate (GFR) between 30-44 mL/min/1.73 square meter and albuminuria creatinine ratio between 30-299 mg/g Chronic kidney disease, unspecified Coronary artery disease Essential hypertension GERD (gastroesophageal reflux disease) Hypercholesterolemia Left renal atrophy Obesity (BMI 30-39.9) Obstructive sleep apnea on CPAP Other and unspecified hyperlipidemia Parkinson's disease Pulmonary embolism Renal calculi Spinal stenosis of lumbar region Vertebrogenic low back pain Family History: Family History (Last Reviewed 12/30/21 @ 14:19 by Reshma Adair) Father Colon cancer CAD (coronary artery disease) Hypertension Mother Hypertension FH: uterine cancer Maternal Aunt FH: uterine cancer Surgical History: Surgical History (Last Reviewed 12/30/21 @ 14:19 by Reshma Adair) History of cholecystectomy History of inguinal hernia repair History of kidney surgery Hx of knee surgery Social History: Social History (Last Updated 12/30/21 @ 14:20 by Reshma Adair) Living Situation History: Household Members: Spouse Household Members: Significant Other Housing: House Alcohol History Details: 1. How often do you have a drink containing alcohol?: a. Never Tobacco History: Patient Tobacco Use Status: Former Tobacco user Smoke Quit Date: 1967 e-Cigarette/Vaping Use: Never Used Second Hand Smoke Exposure: No Substance Use History: Use of substances other than those prescribed or required for medical reasons: No Domestic Abuse History: Have you been hit, kicked, punched, or otherwise hurt by someone within the past year? If so, by whom?: No Do you feel safe in your current relationship?: Yes Homicidal Assessment: Do you have thoughts of harming others: None Do you have a plan to hurt others: No Plan Do you have the means to hurt others: No Nutrition Assessment: Recently lost weight without trying: No Occupation Assessmet: service: No Current occupational status: retired Home Medications and Allergies Home Medications Medication Instructions Recorded Confirmed Type aspirin 81 mg tablet,delayed 81 mg PO DAILY 01/19/20 12/30/21 History release (Adult Aspirin Regimen) finasteride 5 mg tablet 5 mg PO DAILY 01/19/20 12/30/21 History cetirizine 10 mg tablet (All Day 10 mg PO DAILY PRN Allergy Symptoms 08/08/21 12/30/21 History Allergy (cetirizine)) amlodipine 5 mg tablet 5 mg PO BID 11/15/21 12/30/21 History telmisartan 40 mg tablet 40 mg PO DAILY 11/15/21 12/30/21 History apixaban 5 mg tablet (Eliquis) 5 mg PO BID 12/27/21 12/30/21 History Allergies Allergy/AdvReac Type Severity Reaction Status Date / Time tree and shrub pollen Allergy Sneezing Verified 12/30/21 14:21 Physical Exam Vital signs: Vital Signs Temp 97.6 F 12/30/21 14:14 Pulse 59 12/30/21 14:14 Resp 16 12/30/21 14:14 BP 125/69 12/30/21 14:14 O2 Del Method 12/30/21 14:14 Intake & Output 12/29/21 12/30/21 12/30/21 18:59 06:59 18:59 Other: Weight 117.6 kg [place] Weight in Grams [id number] Weight 117.6 kg - Constitutional Present: no acute distress - Routine HEENT Exam Head: Present: normal inspection Eye: Present: EOMI, normal appearance - Routine Neck Exam Present: supple. Absent: lymphadenopathy - Routine Respiratory Exam Present: CTAB - Routine Cardiovascular Exam Cardiovascular: Present: RRR, S1, S2 - Routine Abdominal Exam Present: soft - Routine Extremities Exam Present: normal inspection Hem/Onc Consult Result - Labs Labs: Laboratory Tests 09/13/21 17:57 WBC 10.1 RBC 4.91 Hgb 14.6 Hct 43.2 MCV 88.0 Plt Count 209 Assessment and Plan Patient Active problem list reviewed?: Yes (1) Pulmonary embolism Status: Acute Assessment and plan: 1. This is a 81-year-old man with spontaneous right segmental pulmonary embolism diagnosed in December 2021. No past history of thrombosis. He was on baby aspirin when this occurred. No triggering factors other than obesity and sedentary lifestyle. He is not a smoker. Lower extremity Doppler was negative for DVT. He has been started on Eliquis, now on 5 mg b.i.d.. He is tolerating this well, his symptoms of chest pain have resolved completely. I discussed screening test to rule out underlying malignancy. He has not had a colonoscopy in over 10 years and his father of metastatic colorectal cancer at age 79. He is planning to leave for [place] for the winter months. He has a PCP there. He was advised to follow-up in order to get labs in the next month or 2. Recheck CBC and CMP has he has chronic kidney disease. As for duration of anticoagulation, long-term anticoagulation is indicated as this is a spontaneous pulmonary embolism. However this recommendation will be readdressed depending on how he does in the next few months. Follow-up in 6 months. I thank you very much for this consultation. - Time Spent With Patient Time Spent with Patient (in minutes): 40
--- NOTE | 2022-08-23 12:56 | PM.HEMONCPN ---
Medical Summary - Medical Summary Date of Service: 08/23/22 Chief complaint: Follow-up Primary Care Provider: Genevieve Cooper MD Medical Summary: Diagnosis: Right segmental pulmonary embolism December 2021 He presented with chest pain to [facility]. He had cardiac workup which was negative, he then had a CT angiogram which revealed a segmental pulmonary embolism in the right lung. Lower extremity Doppler was negative for DVT. He was started on Eliquis. He is tolerating that quite well and reports resolution of chest pain. There is no prior history of thromboembolism or family history. He has had strokes in the past. He has been on baby aspirin for many years. He has had a colonoscopy 10 years ago. I discussed screening test to rule out underlying malignancy. He has not had a colonoscopy in over 10 years and his father of metastatic colorectal cancer at age 79. Interval History Interval history: Patient is here in follow-up. He return from [place] a few weeks ago. He underwent cardiac catheterization in [place], this was normal. He denies any other complaints such as bruising or bleeding. He is taking Eliquis twice a day as prescribed. He continues to be quite active, he drove all the way back from [place] with his . Review of Systems - Constitutional Reports as per HPI, Denies fatigue, Denies lack of energy, Denies malaise, Denies night sweats, Denies weight loss - Cardiovascular Reports no additional cardiovascular complaints - Respiratory Reports no additional respiratory complaints - Gastrointestinal Reports no additional gastrointestinal complaints [facility] Medical History: Medical History (Last Reviewed 08/23/22 @ 13:17 by Reshma Adair) Angina pectoris Anxiety Atherosclerotic cardiovascular disease BPH (benign prostatic hyperplasia) Chronic kidney disease (CKD) stage G3b/A2, moderately decreased glomerular filtration rate (GFR) between 30-44 mL/min/1.73 square meter and albuminuria creatinine ratio between 30-299 mg/g Chronic kidney disease, unspecified Coronary artery disease Essential hypertension GERD (gastroesophageal reflux disease) Hypercholesterolemia Left renal atrophy Obesity (BMI 30-39.9) Obstructive sleep apnea on CPAP Other and unspecified hyperlipidemia Parkinson's disease Pulmonary embolism Renal calculi Spinal stenosis of lumbar region Vertebrogenic low back pain Family History: Family History (Last Reviewed 08/23/22 @ 13:17 by Reshma Adair) Father Colon cancer CAD (coronary artery disease) Hypertension Mother Hypertension FH: uterine cancer Maternal Aunt FH: uterine cancer Surgical History: Surgical History (Last Reviewed 08/23/22 @ 13:17 by Reshma Adair) History of cholecystectomy History of inguinal hernia repair History of kidney surgery Hx of knee surgery Social History: Social History (Last Reviewed 08/23/22 @ 13:17 by Reshma Adair) Living Situation History: Household Members: Spouse Household Members: Significant Other Housing: House Alcohol History Details: 1. How often do you have a drink containing alcohol?: a. Never Tobacco History: Patient Tobacco Use Status: Former Tobacco user Smoke Quit Date: 1967 e-Cigarette/Vaping Use: Never Used Second Hand Smoke Exposure: No Substance Use History: Use of substances other than those prescribed or required for medical reasons: No Domestic Abuse History: Have you been hit, kicked, punched, or otherwise hurt by someone within the past year? If so, by whom?: No Do you feel safe in your current relationship?: Yes Homicidal Assessment: Do you have thoughts of harming others: None Do you have a plan to hurt others: No Plan Do you have the means to hurt others: No Nutrition Assessment: Recently lost weight without trying: No Occupation Assessmet: service: No Current occupational status: retired Home Medications and Allergies Home Medications Medication Instructions Recorded Confirmed Type aspirin 81 mg tablet,delayed 81 mg PO DAILY 01/19/20 08/23/22 History release (Adult Aspirin Regimen) finasteride 5 mg tablet 5 mg PO DAILY 01/19/20 08/23/22 History amlodipine 5 mg tablet 5 mg PO BID 11/15/21 08/23/22 History tamsulosin 0.4 mg capsule 0.4 mg PO BEDTIME 08/22/22 08/23/22 History Allergies Allergy/AdvReac Type Severity Reaction Status Date / Time tree and shrub pollen Allergy Sneezing Verified 08/22/22 12:57 Exam Vital signs: Vital Signs Temp 97.6 F 12/30/21 14:14 Pulse 59 12/30/21 14:14 Resp 16 12/30/21 14:14 BP 125/69 12/30/21 14:14 O2 Del Method Room Air 12/30/21 14:14 Weight 117.6 kg BMI result Body Mass Index 37.2 - Constitutional Present: no acute distress - Routine HEENT Exam Head: Present: normal inspection - Routine Respiratory Exam Present: CTAB - Routine Cardiovascular Exam Cardiovascular: Present: RRR, S1, S2 - Routine Abdominal Exam Present: soft - Routine Extremities Exam Present: normal inspection Data - Labs CBC & Chem 7: 08/23/22 13:10 08/23/22 13:10 Assessment and Plan Patient Active problem list reviewed?: Yes (1) Pulmonary embolism Status: Chronic Assessment and plan: 1. This is a 81-year-old man with spontaneous right segmental pulmonary embolism diagnosed in December 2021. No past history of thrombosis. He was on baby aspirin when this occurred. No triggering factors other than obesity and sedentary lifestyle. He is not a smoker. Lower extremity Doppler was negative for DVT. He has been started on Eliquis, now on 5 mg b.i.d.. He is tolerating this well, his symptoms of chest pain have resolved completely. His blood work is stable. Follow-up in 6 months. - Time Spent With Patient Time Spent with Patient (in minutes): 15
[2022-08-23 13:12] LABS: MANUAL DIFF FLAG NO
[2022-08-23 13:15] VITALS: BP 141/70; PULSE 68; RESP 15; O2SAT 96; BMI 30.8
[2022-08-23 13:18] LABS: Basophils Absolute Auto 0.1 X10*3/uL (0.0-0.2); Basophils Percent Auto 0.7 % (0-2); Eosinophils Absolute Auto 0.3 X10*3/uL (0.0-0.4); Eosinophils Percent Auto 2.9 % (0-4); Hematocrit 42.7 % (42.0-52.0); Hemoglobin 13.9 g/dl (14.0-18.0); Imm Gran Abs Auto 0.04 X10*3/uL (0.00-0.03); Imm Gran Pct Auto 0.5 % (0.0-0.4); Lymphocytes Absolute Auto 2.3 X10*3/uL (1.2-4.9); Lymphocytes Percent Auto 25.7 % (20-40); Mean Corpuscular HGB Conc 32.6 g/dl (31.0-36.0); Mean Corpuscular Hemoglobin 29.7 pg (27.0-33.0); Mean Corpuscular Volume 91.2 fL (80.0-98.0); Mean Platelet Volume 10.3 fL (9.4-12.4); Monocytes Absolute Auto 0.5 X10*3/uL (0.1-1.2); Monocytes Percent Auto 5.8 % (2-11); Neutrophils Absolute Auto 5.6 x10*3/uL (2.0-8.3); Neutrophils Percent Auto 64.4 % (45-73); Platelet Count 203 X10*3/uL (160-400); Red Blood Count 4.68 X10*6/uL (4.60-5.80); Red Cell Distribution Width 13.5 % (11.0-16.0); White Blood Count 8.8 X10*3/uL (4.8-10.8)
[2022-08-23 13:29] LABS: Alanine Aminotransferase 21 U/L (0-40); Albumin Level 3.7 g/dL (3.5-5.0); Alkaline Phosphatase 82 U/L (39-117); Anion Gap 13 (12-20); Aspartate Amino Transferase 19 U/L (5-37); Bilirubin Total 0.7 mg/dL (0.0-1.0); Blood Urea Nitrogen 20 mg/dL (9-16); Calcium 9.1 mg/dL (8.4-10.2); Carbon Dioxide 26 mmol/L (22-29); Chloride 109 mmol/L (96-108); Creatinine Clr Calc Pharmacy 42.5; Estimated Glomerular Filt Rate 41; Glucose Random 118 mg/dL (60-115); Potassium 4.4 mmol/L (3.3-5.1); Sodium 144 mmol/L (135-145); Total Protein 6.2 g/dL (6.5-8.0)
--- NOTE | 2022-08-23 14:08 | MHC.HEMONCMA ---
Patient seen today for follow up PE, VSS,labs, 6 month followup.
--- NOTE | 2023-01-18 10:03 | HE.ONCSEC ---
LVM reminding pt of appt on 01/19/23
[2023-01-19 10:09] VITALS: BMI 36.3
[2023-01-19 10:13] VITALS: BP 119/67; PULSE 62; RESP 18; TEMP 35.4; O2SAT 98
[2023-01-19 10:15] LABS: Hematocrit 43.4 % (42.0-52.0); Hemoglobin 14.4 g/dl (14.0-18.0); Mean Corpuscular HGB Conc 33.2 g/dl (31.0-36.0); Mean Corpuscular Hemoglobin 29.9 pg (27.0-33.0); Mean Corpuscular Volume 90.2 fL (80.0-98.0); Mean Platelet Volume 9.8 fL (9.4-12.4); Platelet Count 213 X10*3/uL (160-400); Red Blood Count 4.81 X10*6/uL (4.60-5.80); Red Cell Distribution Width 13.2 % (11.0-16.0); White Blood Count 8.4 X10*3/uL (4.8-10.8)
--- NOTE | 2023-01-19 10:18 | P.PNHO-ONC_ITS ---
Medical Summary - Medical Summary Date of Service: 01/19/23 Chief complaint: Follow-up Primary Care Provider: Genevieve Cooper MD Medical Summary: Diagnosis: Right segmental pulmonary embolism December 2021 He presented with chest pain to [facility]. He had cardiac workup which was negative, he then had a CT angiogram which revealed a segmental pulmonary embolism in the right lung. Lower extremity Doppler was negative for DVT. He was started on Eliquis. He is tolerating that quite well and reports resolution of chest pain. There is no prior history of thromboembolism or family history. He has had strokes in the past. He has been on baby aspirin for many years. He has had a colonoscopy 10 years ago. I discussed screening test to rule out underlying malignancy. He has not had a colonoscopy in over 10 years and his father of metastatic colorectal cancer at age 79. Negative coronary angiogram in [place] in 2021. Interval History Interval history: Patient is here in follow-up. He is doing well and has no complaints today. He is taking Eliquis twice a day. He denies any other complaints such as bruising or bleeding. He continues to be quite active, he is driving to [place] next week. They do this over a course of 3-4 days. Review of Systems - Constitutional Reports as per HPI, Denies lack of energy, Denies malaise, Denies weight loss - Cardiovascular Reports no additional cardiovascular complaints - Gastrointestinal Reports no additional gastrointestinal complaints [facility] Medical History: Medical History (Last Reviewed 08/23/22 @ 13:17 by Reshma Adair) Angina pectoris Anxiety Atherosclerotic cardiovascular disease BPH (benign prostatic hyperplasia) Chronic kidney disease (CKD) stage G3b/A2, moderately decreased glomerular filtration rate (GFR) between 30-44 mL/min/1.73 square meter and albuminuria creatinine ratio between 30-299 mg/g Chronic kidney disease, unspecified Coronary artery disease Essential hypertension GERD (gastroesophageal reflux disease) Hypercholesterolemia Left renal atrophy Obesity (BMI 30-39.9) Obstructive sleep apnea on CPAP Other and unspecified hyperlipidemia Parkinson's disease Pulmonary embolism Renal calculi Spinal stenosis of lumbar region Vertebrogenic low back pain Family History: Family History (Last Reviewed 08/23/22 @ 13:17 by Reshma Adair) Father Colon cancer CAD (coronary artery disease) Hypertension Mother Hypertension FH: uterine cancer Maternal Aunt FH: uterine cancer Surgical History: Surgical History (Last Reviewed 08/23/22 @ 13:17 by Reshma Adair) History of cholecystectomy History of inguinal hernia repair History of kidney surgery Hx of knee surgery Social History: Social History (Last Reviewed 08/23/22 @ 13:17 by Reshma Adair) Living Situation History: Household Members: Spouse Household Members: Significant Other Housing: House Alcohol History Details: 1. How often do you have a drink containing alcohol?: a. Never Tobacco History: Patient Tobacco Use Status: Former Tobacco user Smoke Quit Date: 1966 e-Cigarette/Vaping Use: Never Used Second Hand Smoke Exposure: No Substance Use History: Use of substances other than those prescribed or required for medical reasons : No Domestic Abuse History: Have you been hit, kicked, punched, or otherwise hurt by someone within the past year? If so, by whom?: No Do you feel safe in your current relationship?: Yes Homicidal Assessment: Do you have thoughts of harming others: None Do you have a plan to hurt others: No Plan Do you have the means to hurt others: No Nutrition Assessment: Recently lost weight without trying: No Occupation Assessmet: service: No Current occupational status: retired Home Medications and Allergies Home Medications Medication Instructions Recorded Confirmed Type aspirin 81 mg tablet,delayed 81 mg PO DAILY 01/19/20 10/23/22 History release (Adult Aspirin Regimen) finasteride 5 mg tablet 5 mg PO DAILY 01/19/20 10/23/22 History amlodipine 5 mg tablet 5 mg PO BID 11/15/21 10/23/22 History tamsulosin 0.4 mg capsule 0.4 mg PO BEDTIME 08/22/22 10/23/22 History Allergies Allergy/AdvReac Type Severity Reaction Status Date / Time tree and shrub pollen Allergy Sneezing Verified 10/23/22 16:35 Exam Vital signs: Vital Signs Temp 95.7 F L 01/19/23 10:13 Pulse 62 01/19/23 10:13 Resp 18 01/19/23 10:13 BP 119/67 01/19/23 10:13 Pulse Ox 98 01/19/23 10:13 O2 Del Method Room Air 01/19/23 10:13 Intake & Output 01/18/23 01/19/23 01/19/23 18:59 06:59 18:59 Other: Weight 114.8 kg [place] Weight in Grams [id number] Weight 114.8 kg BMI result Body Mass Index 36.3 - Constitutional Present: no acute distress - Routine HEENT Exam Head: Present: normal inspection - Routine Respiratory Exam Present: CTAB - Routine Cardiovascular Exam Cardiovascular: Present: RRR, S1, S2 - Routine Abdominal Exam Present: soft - Routine Extremities Exam Present: normal inspection Data - Labs CBC & Chem 7: 01/19/23 10:11 01/19/23 10:11 Labs: 08/23/22 13:10 CMP [Comprehensive Met. Panel] Stat Complete Blood Count Auto Diff Stat 01/19/23 10:11 Complete Blood Count no Diff Stat Laboratory Last Values WBC 8.4 X10*3/uL (4.8-10.8) 01/19/23 10:11 RBC 4.81 X10*6/uL (4.60-5.80) 01/19/23 10:11 Hgb 14.4 g/dl (14.0-18.0) 01/19/23 10:11 Hct 43.4 % (42.0-52.0) 01/19/23 10:11 MCV 90.2 fL (80.0-98.0) 01/19/23 10:11 MCH 29.9 pg (27.0-33.0) 01/19/23 10:11 MCHC 33.2 g/dl (31.0-36.0) 01/19/23 10:11 RDW 13.2 % (11.0-16.0) 01/19/23 10:11 Plt Count 213 X10*3/uL (160-400) 01/19/23 10:11 MPV 9.8 fL (9.4-12.4) 01/19/23 10:11 Immature Gran % (Auto) 0.5 % (0.0-0.4) H 08/23/22 13:10 Neut % (Auto) 64.4 % (45-73) 08/23/22 13:10 Lymph % (Auto) 25.7 % (20-40) 08/23/22 13:10 Parker % (Auto) 5.8 % (2-11) 08/23/22 13:10 Eos % (Auto) 2.9 % (0-4) 08/23/22 13:10 Baso % (Auto) 0.7 % (0-2) 08/23/22 13:10 Lymph # (Auto) 2.3 X10*3/uL (1.2-4.9) 08/23/22 13:10 Parker # (Auto) 0.5 X10*3/uL (0.1-1.2) 08/23/22 13:10 Eos # (Auto) 0.3 X10*3/uL (0.0-0.4) 08/23/22 13:10 Baso # (Auto) 0.1 X10*3/uL (0.0-0.2) 08/23/22 13:10 Abs Immat Gran (auto) 0.04 X10*3/uL (0.00-0.03) H 08/23/22 13:10 Absolute Neuts (auto) 5.6 x10*3/uL (2.0-8.3) 08/23/22 13:10 Absolute Nucleated RBC 0.000 X10*3/uL (0.0-0.012) 01/19/23 10:11 Nucleated RBC % (auto) 0.0 /100WBC (0.0-0.2) 01/19/23 10:11 Sodium 144 mmol/L (135-145) 08/23/22 13:10 Potassium 4.4 mmol/L (3.3-5.1) D 08/23/22 13:10 Chloride 109 mmol/L (96-108) H 08/23/22 13:10 Carbon Dioxide 26 mmol/L (22-29) 08/23/22 13:10 Anion Gap 13 (12-20) 08/23/22 13:10 BUN 20 mg/dL (9-16) H 08/23/22 13:10 Creatinine 1.62 mg/dL (0.5-1.4) H 08/23/22 13:10 Estim Creat Clear Calc 42.5 08/23/22 13:10 Estimated GFR 41 08/23/22 13:10 Random Glucose 118 mg/dL (60-115) H 08/23/22 13:10 Calcium 9.1 mg/dL (8.4-10.2) 08/23/22 13:10 Total Bilirubin 0.7 mg/dL (0.0-1.0) 08/23/22 13:10 AST 19 U/L (5-37) 08/23/22 13:10 ALT 21 U/L (0-40) 08/23/22 13:10 Alkaline Phosphatase 82 U/L (39-117) 08/23/22 13:10 Total Protein 6.2 g/dL (6.5-8.0) L 08/23/22 13:10 Albumin 3.7 g/dL (3.5-5.0) 08/23/22 13:10 Assessment and Plan Patient Active problem list reviewed?: Yes (1) Pulmonary embolism Status: Chronic Assessment and plan: 1. This is a 82-year-old man with spontaneous right segmental pulmonary embolism diagnosed in December 2021. No past history of thrombosis. He was on baby aspirin when this occurred. No triggering factors other than obesity and sedentary lifestyle. He is not a smoker. Lower extremity Doppler was negative for DVT. He has been started on Eliquis, 5 mg b.i.d.. He is tolerating this well, his symptoms of chest pain have resolved completely. His blood work is stable. He has been on anticoagulation for over a year now. We discussed cutting back on Eliquis for prophylactic dose of 2.5 mg b.i.d. from his next prescription refill. He has mild chronic renal insufficiency. Follow-up in 6 months. - Time Spent With Patient Time Spent with Patient (in minutes): 15
[2023-01-19 10:41] LABS: Anion Gap 13 (12-20); Blood Urea Nitrogen 17 mg/dL (9-16); Calcium 9.5 mg/dL (8.4-10.2); Carbon Dioxide 27 mmol/L (22-29); Chloride 109 mmol/L (96-108); Creatinine Clr Calc Pharmacy 47.4; Estimated Glomerular Filt Rate 43; Glucose Fasting 125 mg/dL (60-99); Sodium 145 mmol/L (135-145)
--- NOTE | 2023-01-19 12:07 | MHC.HEMONC ---
Williamis decreased by Dr Ovalle following her f/u with him. Bloodwork reviewed. Pt has f/u.
--- NOTE | 2023-01-19 12:30 | MHC.HEMONC ---
Labs faxed to Dr Trent everett at pt request
== END 2023-03-24 | disposition home or self-care (01) ==
LOC: HO.ONC 10:00
PROVIDERS: PCP Internal Medicine; Referring Provider Nurse Practitioner Family; Visit Provider Internal Medicine
DX: I26.93 Single subsegmental thrombotic pulmonary embolism without acute cor pulmonale (principal); N18.2 Chronic kidney disease, stage 2 (mild); Z79.01 Long term (current) use of anticoagulants
CPT/HCPCS: 36415; 80048; 80053; 85025; 85027; 99204; 99213; 99214

== ENCOUNTER 2023-01-22 09:02 | Outpatient (AMB) | payer MEDICARE, OTHER, SELFPAY ==
--- NOTE | 2023-01-22 09:08 | MHC.OFFVIS ---
Intake Vital Signs 01/22/23 09:09 Height 5 ft 10 in Weight 253 lb 8.505 oz BMI 36.4 BP 92/62 Blood Pressure Location Lt brachial Position Sitting Pulse 68 Intake Visit Reasons: 6 month f/u Intake Note: 6 month follow up Section [employer] Required: No Accompanied by: Spouse Allergies tree and shrub pollen Allergy (Verified 01/22/23 09:11) Sneezing Medication List - Last Reconciled 01/22/23 by Otoniel Ferguson MD amlodipine 5 mg PO BID apixaban 2.5 mg PO BID atenolol 100 mg PO DAILY atorvastatin (Lipitor) 80 mg PO DAILY 90 days cetirizine (All Day Allergy (cetirizine)) 10 mg PO DAILY PRN 90 days esomeprazole magnesium 40 mg PO DAILY ezetimibe 10 mg PO DAILY finasteride 5 mg PO DAILY fluticasone propionate 50 mcg/actuation (Flonase Allergy Relief) 1 spray intranasal DAILY lorazepam 0.5 mg PO DAILY PRN nitroglycerin 0.3 mg sublingual Q5M PRN tamsulosin 0.4 mg PO BEDTIME telmisartan 40 mg PO DAILY 90 days HPI HPI Comments History of Present Illness Details Prince returns for follow-up regarding coronary disease. To recall, he underwent LAD stenting in 2018. Due to chest pain, he underwent another cardiac catheterization in [place] in 07/2022. No obstructive findings. No interventions performed and he was discharged then. Patient states he does get acid reflux and esophageal spasms and not clear if that is the reason. No further pains anyway. In the past, he has also had some pleuritic-type chest pains and that led to diagnosis of pulmonary embolism for which he takes Eliquis. [facility] Medical History (Updated 01/19/23 @ 10:20 by Leyla Ovalle MD) Pulmonary embolism Vertebrogenic low back pain Spinal stenosis of lumbar region Obstructive sleep apnea on CPAP Chronic kidney disease, unspecified Other and unspecified hyperlipidemia Essential hypertension Angina pectoris Atherosclerotic cardiovascular disease Left renal atrophy Renal calculi Parkinson's disease Obesity (BMI 30-39.9) GERD (gastroesophageal reflux disease) BPH (benign prostatic hyperplasia) Anxiety Hypercholesterolemia Chronic kidney disease (CKD) stage G3b/A2, moderately decreased glomerular filtration rate (GFR) between 30-44 mL/min/1.73 square meter and albuminuria creatinine ratio between 30-299 mg/g Coronary artery disease Surgical History Hx of knee surgery History of kidney surgery History of inguinal hernia repair History of cholecystectomy Family History Father Colon cancer CAD (coronary artery disease) Hypertension Mother Hypertension FH: uterine cancer Maternal Aunt FH: uterine cancer Social History Household Members: Spouse and Significant Other Housing: House Alcohol intake: never Patient Tobacco Use Status: Former Tobacco user Quit Date: 1967 e-Cigarette/Vaping Use: Never Used Second Hand Smoke Exposure: No service: No Current occupational status: retired Cognitive needs: Yes Hearing needs: Yes Vision needs: Yes Review of Systems Const Denies weakness ENT Denies dizziness Card Denies chest pain, Denies chest pain with activity, Denies syncope, Denies rapid heart rate, Denies pedal edema, Denies edema, Denies leg edema, Denies lightheadedness, Denies palpitations, Denies dyspnea, Denies dyspnea on exertion and Denies orthopnea Resp Denies cough, Denies dyspnea and Denies dyspnea on exertion GI Denies hematochezia and Denies change in stool character Musc Denies abnormal gait, Denies muscle cramps, Denies muscle weakness, Denies numbness, Denies radiating pain into limb and Denies tingling Neuro Denies abnormal gait, Denies dizziness, Denies syncope, Denies numbness, Denies tingling and Denies weakness Endo Denies palpitations Physical Exam Vital Signs: Last Vital Signs Pulse 68 01/22/23 09:09 BP 92/62 01/22/23 09:09 BMI result Body Mass Index 36.4 Const General: comfortable and no acute distress Orientation/consciousness: patient oriented x3 HEENT Other: Unremarkable Head: Yes normal to inspection Neck Neck: Yes normal visual inspection Chest Chest palpation & inspection: normal inspection of the chest Resp Auscultation: clear to auscultation bilaterally Cardio Palpation: normal PMI Heart sounds: S1 normal heart sound present, S2 normal heart sound present, no gallops, no murmurs and no rubs GI Palpation (GI): Soft to palpation Back/Spine/Pelvis Other: unremarkable Skin General skin exam: no rashes or lesions noted Neuro General: patient oriented x3 Extrem General: Yes normal to inspection Psych Mental Status: mental status grossly normal Assessment & Plan Assessment & Plan (1) Atherosclerotic cardiovascular disease: Code(s): I25.10 - Atherosclerotic heart disease of [place] coronary artery without angina pectoris Plan: Cath 07/2022. Proximal LAD with 40-50% stenosis. LAD stent was patent. Circumflex and RCA with minor irregularities. Continue med management. He is on Eliquis and hence off aspirin especially due to acid reflux concerns. If he comes off Eliquis, then may use a single antiplatelet agent, possibly Plavix. Continue statins and Zetia. Last LDL 73 mg/dL. (2) Essential hypertension: Code(s): I10 - Essential (primary) hypertension Plan: On Telmisartan, Atenolol, Amlodipine. Blood pressure on the lower side today. Advised him to do some home blood pressures. He also has a nephrology appointment coming up. If still in this range, then possibly cut back on either on Amlodipine or Telmisartan. (3) Other and unspecified hyperlipidemia: Code(s): E78.5 - Hyperlipidemia, unspecified Plan: Continue statins and Zetia. (4) Chronic kidney disease, unspecified: Code(s): N18.9 - Chronic kidney disease, unspecified Qualifiers: Chronic kidney disease stage: unspecified stage Qualified Code(s): N18.9 - Chronic kidney disease, unspecified Plan: Last several creatinine is 1.55. (5) Obstructive sleep apnea on CPAP: Code(s): G47.33 - Obstructive sleep apnea (adult) (pediatric); Z99.89 - Dependence on other enabling machines and devices Plan: Continue CPAP. Plan He plans to go to [place] this weekend. When he returns in 6 months, we will see him back in follow-up. Discussed with significant other. Coding Level of Care Code Est Pt Level 4 (49294) Diagnoses Atherosclerotic cardiovascular disease I25.10 Essential hypertension I10 Other and unspecified hyperlipidemia E78.5 Chronic kidney disease, unspecified CKD stage N18.9 Chronic kidney disease stage: unspecified stage Obstructive sleep apnea on CPAP G47.33; Z99.89
[2023-01-22 09:09] VITALS: BP 92/62; PULSE 68; BMI 36.4
== END 2023-01-22 09:33 | disposition home or self-care (01) ==
PROVIDERS: Visit Provider Internal Medicine
DX: I25.10 Atherosclerotic heart disease of native coronary artery without angina pectoris (principal); I12.9 Hypertensive chronic kidney disease with stage 1 through stage 4 chronic kidney disease, or unspecified chronic kidney disease; E78.5 Hyperlipidemia, unspecified; N18.9 Chronic kidney disease, unspecified; G47.33 Obstructive sleep apnea (adult) (pediatric); Z99.89 Dependence on other enabling machines and devices
CPT/HCPCS: 99214

== ENCOUNTER → 2023-01-22 09:02 | Outpatient (BNVA) | payer MEDICARE, OTHER, SELFPAY | PROVIDERS: Visit Provider Internal Medicine | DX: I25.10 Atherosclerotic heart disease of native coronary artery without angina pectoris (principal); I12.9 Hypertensive chronic kidney disease with stage 1 through stage 4 chronic kidney disease, or unspecified chronic kidney disease; N18.9 Chronic kidney disease, unspecified; G47.33 Obstructive sleep apnea (adult) (pediatric); Z99.89 Dependence on other enabling machines and devices; E78.5 Hyperlipidemia, unspecified | CPT/HCPCS: 99212 ==

== ENCOUNTER 2023-01-24 10:51 | Outpatient (AMB) | payer MEDICARE, OTHER, SELFPAY ==
--- NOTE | 2023-01-24 11:06 | HO.NEPHOV ---
HPI HPI Comments History of Present Illness Details Prince is a pleasant 82-year-old man with a history of longstanding hypertension and CKD. In 2016 he underwent coronary angiogram. Inoperable lesion. Telmisartan was stopped and at no lower was doubled by Dr. Ferguson. December 2017 underwent cardiac angiogram with 2 stents were placed In 2021 he underwent knee surgery. He had suboptimal blood pressure while he was admitted in [place]. Chlorthalidone was added at 20 mg daily and increase to 50 mg. Telmisartan was started 20 and increase to 40 mg a day.Creatinine bumped up to 2.48 from a baseline of 1.7. Telmisartan was cut down to 20 mg and chlorthalidone was discontinued. Subsequently serum creatinine improved. History of obstructive sleep apnea and uses CPAP regularly. History of Parkinson's disease stage I and being followed by Dr. Harjeet Morrison has solitary functioning right kidney. He has chronic left-sided hydronephrosis. Renal scan in 2011 showed 96% function on the right kidney with 4% function on the left kidney. Here for follow-up regarding chronic kidney disease. [facility] Medical History (Updated 02/02/23 @ 12:13 by Rambo Jackson MD) Pulmonary embolism Vertebrogenic low back pain Spinal stenosis of lumbar region Obstructive sleep apnea on CPAP Chronic kidney disease, unspecified Other and unspecified hyperlipidemia Essential hypertension Angina pectoris Atherosclerotic cardiovascular disease Left renal atrophy Renal calculi Parkinson's disease Obesity (BMI 30-39.9) GERD (gastroesophageal reflux disease) BPH (benign prostatic hyperplasia) Anxiety Hypercholesterolemia Chronic kidney disease (CKD) stage G3b/A2, moderately decreased glomerular filtration rate (GFR) between 30-44 mL/min/1.73 square meter and albuminuria creatinine ratio between 30-299 mg/g Coronary artery disease Surgical History Hx of knee surgery History of kidney surgery History of inguinal hernia repair History of cholecystectomy Family History Father Colon cancer CAD (coronary artery disease) Hypertension Mother Hypertension FH: uterine cancer Maternal Aunt FH: uterine cancer Social History Household Members: Spouse and Significant Other Housing: House Alcohol intake: never Patient Tobacco Use Status: Former Tobacco user Quit Date: quit 1967 e-Cigarette/Vaping Use: Never Used Second Hand Smoke Exposure: No service: No Current occupational status: retired Cognitive needs: Yes Hearing needs: Yes Vision needs: Yes Vital Signs 01/24/23 11:10 Height 5 ft 10 in BP 100/60 Blood Pressure Location Lt popliteal Position Sitting Physical Exam Vital Signs: Last Vital Signs BP 100/60 01/24/23 11:10 Const General: comfortable Nutritional Appearance: well nourished Orientation/consciousness: patient oriented x3 HEENT Head: No normal to inspection Mouth: moist mucous membranes Neck Neck: Yes supple and Yes no JVD Resp Auscultation: clear to auscultation bilaterally, no rales and rub present Cardio Jugular venous distension: no JVD Palpation: no palpable S3 and no palpable S4 Heart sounds: no rubs GI Palpation (GI): Soft to palpation and nontender Percussion: No Fluid wave present General: Yes no CVA tenderness Back/Spine/Pelvis Back: no CVA tenderness Skin General skin exam: no rashes or lesions noted Neuro General: patient oriented x3 Extrem General: Yes no pedal edema and No clubbing Right lower extremity: edema Left lower extremity: edema Results Reviewed Results Reviewed: All results were reviewed chart was reviewed Bladder ultrasound in November 2022 BLADDER: Well distended and normal. Right ureteral jet is demonstrated; left ureteral jet is not demonstrated. Prevoid bladder volume is 173 mL. Postvoid bladder volume is 29 mL. Prostate gland volume is 27.3 mL. Assessment & Plan Assessment & Plan (1) Chronic kidney disease, unspecified: Comment: solitary functioning right kidney. chronic left-sided hydronephrosis Renal scan in 2011 showed 96% function on the right kidney with 4% function on the left kidney. Code(s): N18.9 - Chronic kidney disease, unspecified Qualifiers: Chronic kidney disease stage: unspecified stage Qualified Code(s): N18.9 - Chronic kidney disease, unspecified Plan: Prince CKD 3 with episodes of acute kidney injury. He has evidence of chronic left-sided hydronephrosis with a solitary functional right kidney. At present renal function is close to baseline. Continue to avoid nephrotoxic agents including NSAIDs. Intake monitor the output Optimize blood pressure and avoid hypotension (2) Essential hypertension: Code(s): I10 - Essential (primary) hypertension Plan: Currently blood pressure is well controlled. Goal is submitted blood pressure is under 130/80. Encouraged him to stay on a low-sodium diet. No changes were made to his antihypertensive regimen. Orders: Orders Creatinine 6 Months N18.9 - Chronic kidney disease, unspecified Calcium 6 Months N18.9 - Chronic kidney disease, unspecified Electrolytes 6 Months N18.9 - Chronic kidney disease, unspecified Blood Urea Nitrogen 6 Months N18.9 - Chronic kidney disease, unspecified Medications: Discontinued telmisartan Discontinued Reason: No Longer Medically Relevant 40 mg PO DAILY 90 days 90 tabs 3RF I10 - Essential (primary) hypertension Coding Level of Care Code Est Pt Level 4 (04742) Diagnoses Chronic kidney disease, unspecified CKD stage N18.9 Chronic kidney disease stage: unspecified stage Essential hypertension I10
[2023-01-24 11:10] VITALS: BP 100/60
== END 2023-01-24 11:39 | disposition home or self-care (01) ==
PROVIDERS: PCP Internal Medicine; Visit Provider Internal Medicine Hypertension Specialist
DX: I12.9 Hypertensive chronic kidney disease with stage 1 through stage 4 chronic kidney disease, or unspecified chronic kidney disease (principal); N18.9 Chronic kidney disease, unspecified
CPT/HCPCS: 99214

== ENCOUNTER → 2023-01-24 10:51 | Outpatient (BNVA) | payer MEDICARE, OTHER, SELFPAY | PROVIDERS: PCP Internal Medicine; Visit Provider Internal Medicine Hypertension Specialist | DX: I12.9 Hypertensive chronic kidney disease with stage 1 through stage 4 chronic kidney disease, or unspecified chronic kidney disease (principal); N18.30 Chronic kidney disease, stage 3 unspecified | CPT/HCPCS: 99212 ==